=== PATIENT | male | born 1970 | race Hispanic/Latino ===

== ENCOUNTER 2019-05-29 14:12 | Observation (INO) | payer BC ==
[~2019-05-29] VITALS: Ht 177.8 cm; Wt 127.0 kg
--- NOTE | 2019-05-29 16:06 | NUR ---
blood sent to lab.
[2019-05-29 16:09] LABS: BASOPHILS # (AUTO) 0.1 (0.0-0.1); BASOPHILS % 0.9 % (0.0-1.0); EOSINOPHILS # (AUTO) 0.2 (0.0-0.4); EOSINOPHILS % 2.7 % (0.0-6.0); HEMOGLOBIN 13.8 g/dL (14.0-18.0); LYMPHOCYTES # (AUTO) 2.1 (1.0-3.2); LYMPHOCYTES % 36.5 % (18.0-39.1); MEAN CORPUSCULAR HEMOGLOBIN 31.9 pg (28-32); MEAN CORPUSCULAR HGB CONC 35.4 g/dL (31-35); MEAN CORPUSCULAR VOLUME 90.1 fL (81-99); MONOCYTES # (AUTO) 0.4 (0.2-0.8); MONOCYTES % 6.6 % (4.4-11.3); NEUTROPHILS # (AUTO) 3.1 (2.1-6.9); PLATELET COUNT 190 x10e3/uL (140-360); RED BLOOD COUNT 4.33 x10e6/uL (4.3-5.7); RED CELL DISTRIBUTION WIDTH 13.4 % (11.7-14.4)
[2019-05-29 16:19] LABS: INR 0.82; PROTHROMBIN TIME 11.8 seconds (11.9-14.5)
[2019-05-29 16:20] LABS: PARTIAL THROMBOPLASTIN TIME 28.8 seconds (23.8-35.5)
[2019-05-29 16:28] LABS: ALBUMIN/GLOBULIN RATIO 1.1 (0.8-2.0); ANION GAP 20.6 mmol/L (8-16); CALCIUM 9.2 mg/dL (8.4-10.2); CREATININE, SERUM 1.44 mg/dL (0.72-1.25); POTASSIUM 3.6 mmol/L (3.5-5.1)
[2019-05-29 16:34] LABS: CREATINE KINASE MB 15.7 ng/mL (0-5.0)
[2019-05-29] MEDS ORDERED: SODIUM CHLORIDE 0.9% 1000ML 1,000 ML IV STA (16:57)
[2019-05-29 17:32] LABS: CHOL/HDL RATIO 8.7 (3.9-4.7); CHOLESTEROL 372 MD/DL (0-199); HDL CHOLESTEROL 43 MG/DL (40-60); TRIGLYCERIDES 1145 MG/DL (0-149)
[2019-05-29] MEDS ORDERED: DEXTROSE 50% SYRINGE 50 ML IV PRN (18:15)
[2019-05-29] MEDS: SODIUM CHLORIDE 0.9% 1000ML 1,000 ML IV SCH (18:53)
[2019-05-29] MEDS ORDERED: ONDANSETRON HCL INJ 2MG/ML 2ML 2 MG/ML VIAL IV STA (19:20)
[2019-05-29] MEDS ORDERED: MORPHINE SULFATE INJ 4 MG/ML INJ 1ML IV STA (19:20)
[2019-05-29] MEDS ORDERED: GEMFIBROZIL600 MG PO (20:04)
[2019-05-29] MEDS ORDERED: SYNTHROID100 MCG PO (20:04)
[2019-05-29] MEDS ORDERED: AMLODIPINE BESYL5 MG PO (20:04)
--- NOTE | 2019-05-29 20:37 | NUR ---
dr alexander spoken to regarding hypertension, orders recieved, telephone orders read back in full
[2019-05-29] MEDS ORDERED: HYDRALAZINE HCL 20 MG/ML VIAL IV PRN (20:45)
[2019-05-29] MEDS: AMLODIPINE BESYLATE 5 MG TAB PO SCH (20:57)
--- NOTE | 2019-05-29 20:58 | NUR ---
almodipine to be started first dose now per dr goodman
[2019-05-29] MEDS ORDERED: HYDRALAZINE HCL 20 MG/ML VIAL ONE (21:01)
[2019-05-29] MEDS: INSULIN LISPRO 100 UNIT/1 ML 3ML VIAL SQ SCH (22:44)
[2019-05-29 23:28] VITALS: BP 139/81
[2019-05-29 23:48] VITALS: BP 141/98
[2019-05-29 23:54] VITALS: BP 141/98
[2019-05-30] MEDS: MORPHINE SULFATE INJ 4 MG/ML INJ 1ML IV PRN ×3 (00:25→09:13)
[2019-05-30] MEDS: ONDANSETRON HCL INJ 2MG/ML 2ML 2 MG/ML VIAL IV PRN ×2 (00:25→09:13)
[2019-05-30] MEDS ORDERED: HYDRALAZINE HCL 20 MG/ML VIAL IV PRN (00:45)
[2019-05-30] MEDS: SODIUM CHLORIDE 0.9% 1000ML 1,000 ML IV SCH ×4 (01:10→23:05)
[2019-05-30 01:35] LABS: CREATINE KINASE 469 IU/L (30-200)
[2019-05-30 04:32] VITALS: BP 142/89
[2019-05-30] MEDS ORDERED: LEVOTHYROXINE SODIUM 100 MCG TAB PO SCH (06:00)
[2019-05-30 06:53] LABS: BASOPHILS % 0.9 % (0.0-1.0); EOSINOPHILS # (AUTO) 0.1 (0.0-0.4); EOSINOPHILS % 3.2 % (0.0-6.0); HEMATOCRIT 39.7 % (38.2-49.6); HEMOGLOBIN 12.8 g/dL (14.0-18.0); LYMPHOCYTES # (AUTO) 1.6 (1.0-3.2); LYMPHOCYTES % 38.1 % (18.0-39.1); MEAN CORPUSCULAR HEMOGLOBIN 31.1 pg (28-32); MEAN CORPUSCULAR HGB CONC 32.2 g/dL (31-35); MEAN CORPUSCULAR VOLUME 96.4 fL (81-99); MONOCYTES # (AUTO) 0.3 (0.2-0.8); MONOCYTES % 7.7 % (4.4-11.3); NEUTROPHILS # (AUTO) 2.2 (2.1-6.9); NEUTROPHILS % 49.9 % (38.7-80.0); PLATELET COUNT 143 x10e3/uL (140-360); RED BLOOD COUNT 4.12 x10e6/uL (4.3-5.7); RED CELL DISTRIBUTION WIDTH 13.2 % (11.7-14.4)
[2019-05-30 07:15] LABS: CHOL/HDL RATIO 8.9 (3.9-4.7)
--- NOTE | 2019-05-30 07:20 | NUR ---
PATIENT IS ALERT AND IN STABLE CONDITION WITH NO S/S OF RESPIRATORY DISTRESS. PATIENT C/O RIGHT ANTERIOR FOOT PAIN 10/29. TELEMETRY APPLIED. CALL LIGHT IS WITHIN REACH- PATIENT INSTRUCTED TO CALL FOR ASSISTANCE NEEDED
[2019-05-30 07:29] VITALS: BP 133/85
[2019-05-30 07:38] LABS: THYROID STIMULATING HORMONE 54.336 uIU/mL (0.350-4.940)
[2019-05-30 07:41] VITALS: BP 133/85
[2019-05-30 08:22] LABS: ALANINE AMINOTRANSFERASE 32 IU/L (0-55); ALBUMIN 3.6 g/dL (3.5-5.0); ALBUMIN/GLOBULIN RATIO 1.1 (0.8-2.0); ALKALINE PHOSPHATASE 77 IU/L (40-150); ANION GAP 18.3 mmol/L (8-16); BLOOD UREA NITROGEN 12 mg/dL (7-26); BUN/CREATININE RATIO 11 (6-25); CALCIUM 8.2 mg/dL (8.4-10.2); CARBON DIOXIDE 21 mmol/L (22-29); CHLORIDE 97 mmol/L (98-107); CREATININE, SERUM 1.14 mg/dL (0.72-1.25); EST GLOMERULAR FILTRATION RATE > 60 ML/MIN (60-); GLUCOSE 242 mg/dL (74-118); POTASSIUM 3.3 mmol/L (3.5-5.1); SODIUM 133 mmol/L (136-145)
[2019-05-30] MEDS: GEMFIBROZIL 600 MG TAB PO SCH ×2 (09:04→16:25)
[2019-05-30] MEDS: INSULIN LISPRO 100 UNIT/1 ML 3ML VIAL SQ SCH ×5 (09:05→20:49)
[2019-05-30] MEDS: AMLODIPINE BESYLATE 5 MG TAB PO SCH (09:06)
[2019-05-30 09:40] LABS: CREATINE KINASE 1002 IU/L (30-200)
[2019-05-30 11:16] VITALS: BP 128/76
[2019-05-30 14:27] LABS: CREATINE KINASE 928 IU/L (30-200)
[2019-05-30 15:05] VITALS: BP 135/75
[2019-05-30] MEDS ORDERED: ACETAMINOPHEN 325 MG TAB PO PRN (16:30)
--- NOTE | 2019-05-30 19:07 | NUR ---
PATIENT IN STABLE CONDITION WITH NO S/S OF RESPIRATORY DISTRESS- NO PAIN VOICED. TELEMETRY APPLIED. CALL LIGHT IS WITHIN REACH, PATIENT INSTRUCTED TO CALL FOR ASSISTANCE NEEDED. BEDSIDE SHIFT REPORT GIVEN TO ONCOMING NURSE.
--- NOTE | 2019-05-30 19:23 | NUR ---
RECEIVED REPORT FROM 7AM NURSE, ROUNDS DONE, WILL CONTINUE TO MONITOR.
[2019-05-30 20:00] VITALS: BP 135/69
[2019-05-30] MEDS: INSULIN GLARGINE 100 UNITS/ML VIAL SQ SCH (20:50)
--- NOTE | 2019-05-30 23:31 | Consultation ---
DATE OF CONSULTATION: 05/30/2019 Endocrine Consultation Thank you very much for referring this patient. HISTORY OF PRESENT ILLNESS: This is a 48-year-old gentleman, who was referred to me for evaluation of severe hypothyroidism, diabetes mellitus, and hyperlipidemia. The patient reportedly is a known diabetic for last several years and takes Levemir insulin 20 units twice daily. He also has history of hypothyroidism, for which he is on Synthroid 0.2 mg once daily, along with hyperlipidemia and diabetes mellitus type 2. The patient came to the hospital with history of severe pain in both legs. He was found to have rhabdomyolysis and his CK levels were significantly elevated. The further lab evaluation shows his TSH is around 15.54, which is significantly elevated. The blood sugar is also elevated and the triglyceride was 1145. The patient is getting IV fluids presently. His blood sugars are in the ranges of 50-300. No history of major coronary artery disease in the past. PHYSICAL EXAMINATION: GENERAL: Today, the patient is alert, awake. He is moderately overweight. He looks myxedematous. VITAL SIGNS: His heart rate is around 60, blood pressure 140/80 mmHg. HEENT: Essentially unremarkable. Thyroid is palpable. Clinically, he looks hypothyroid. CHEST: Bilateral vesicular breathing. He has mild bronchospasm. CARDIOVASCULAR: First and second heart sounds. There are no 3rd or 4th heart sounds. Ejection systolic murmur is grade 2/6. EXTREMITIES: The patient has evidence of diabetes and sensorimotor neuropathy in both lower extremities. LABORATORY DATA: His triglyceride level is 1145. His cholesterol was 372, and his blood sugar was 342 at the time of admission with anion gap of 20.6. IMPRESSION: Hypothyroidism, acute rhabdomyolysis, diabetes mellitus type 2 with complications, hyperlipidemia, hypertension. PLAN: At this time is to put him on Lantus and Humalog combination, increase his thyroid dose and change from Lopid to Tricor 145 mg once daily IV fluids. Thank you for referring this patient. I will follow this patient with you. MD NAVDEEP Barnes/ROLDANL /[id number]
[2019-05-31] VITALS (9 sets, daily range): BP systolic 118–140; BP diastolic 66–97
[2019-05-31] MEDS: SODIUM CHLORIDE 0.9% 1000ML 1,000 ML IV SCH ×3 (04:04→20:57)
[2019-05-31] MEDS: LEVOTHYROXINE SODIUM 100 MCG TAB PO SCH (06:09)
[2019-05-31 06:37] LABS: BASOPHILS % 0.6 % (0.0-1.0); EOSINOPHILS # (AUTO) 0.1 (0.0-0.4); EOSINOPHILS % 2.2 % (0.0-6.0); HEMATOCRIT 39.1 % (38.2-49.6); LYMPHOCYTES # (AUTO) 2.1 (1.0-3.2); LYMPHOCYTES % 40.6 % (18.0-39.1); MEAN CORPUSCULAR HEMOGLOBIN 31.1 pg (28-32); MEAN CORPUSCULAR HGB CONC 33.2 g/dL (31-35); MEAN CORPUSCULAR VOLUME 93.5 fL (81-99); MONOCYTES # (AUTO) 0.3 (0.2-0.8); MONOCYTES % 5.7 % (4.4-11.3); NEUTROPHILS # (AUTO) 2.6 (2.1-6.9); NEUTROPHILS % 50.3 % (38.7-80.0); PLATELET COUNT 164 x10e3/uL (140-360); RED BLOOD COUNT 4.18 x10e6/uL (4.3-5.7); RED CELL DISTRIBUTION WIDTH 13.3 % (11.7-14.4)
[2019-05-31 07:00] LABS: ANION GAP 14.7 mmol/L (8-16); BLOOD UREA NITROGEN 9 mg/dL (7-26); BUN/CREATININE RATIO 8 (6-25); CALCIUM 8.6 mg/dL (8.4-10.2); CARBON DIOXIDE 22 mmol/L (22-29); CHLORIDE 100 mmol/L (98-107); CREATININE, SERUM 1.14 mg/dL (0.72-1.25); EST GLOMERULAR FILTRATION RATE > 60 ML/MIN (60-); GLUCOSE 188 mg/dL (74-118); POTASSIUM 3.7 mmol/L (3.5-5.1); SODIUM 133 mmol/L (136-145)
[2019-05-31] MEDS ORDERED: ACETAMINOPHEN/CODEINE 300MG - 30MG TAB PO PRN (07:00)
--- NOTE | 2019-05-31 07:12 | NUR ---
REPORT GIVEN TO 7AM NURSE, ROUNDS DONE, CALL LIGHT REMAIN IN REACH. WILL CONTINUE TO MONITOR. PATIENT IS SITTING ON THE SOFA WITH HIS .
--- NOTE | 2019-05-31 07:20 | NUR ---
PATIENT IS IN STABLE CONDITION WITH NO S/S OF RESPIRATORY DISTRESS. PATIENT DENIES PAIN. TELEMETRY APPLIED. PRESENT IN THE ROOM. CALL LIGHT IS WITHIN REACH OF PATIENT, PATIENT INSTRUCTED TO CALL FOR ASSISTANCE NEEDED.
[2019-05-31] MEDS: INSULIN LISPRO 100 UNIT/1 ML 3ML VIAL SQ SCH ×7 (07:30→20:22)
[2019-05-31] MEDS: AMLODIPINE BESYLATE 5 MG TAB PO SCH (08:21)
[2019-05-31] MEDS ORDERED: FENOFIBRATE 145 MG TAB PO ONE (09:00)
--- NOTE | 2019-05-31 19:10 | NUR ---
walking rounds complete, pt alert resp even and no c/o pain when asked, at bedside, call light in reach.
--- NOTE | 2019-05-31 19:23 | NUR ---
PATIENT IS RESTING IN BED- IN STABLE CONDITION WITH NO S/S OF RESPIRATORY DISTRESS. NO PAIN VOICED. TELEMETRY APPLIED. PRESENT IN THE ROOM. CALL LIGHT IS WITHIN REACH OF PATIENT- PATIENT INSTRUCTED TO CALL FOR ASSISTANCE NEEDED. BEDSIDE SHIFT REPORT GIVEN TO ONCOMING NURSE.
[2019-05-31] MEDS: INSULIN GLARGINE 100 UNITS/ML VIAL SQ SCH (22:15)
[2019-06-01] VITALS: BP 116/71
--- NOTE | 2019-06-01 02:35 | NUR ---
pt resting comfortably, family member at bedside, no distress noted call light in reach. will cont to monitor.
[2019-06-01 04:00] VITALS: BP 128/77
[2019-06-01] MEDS: LEVOTHYROXINE SODIUM 100 MCG TAB PO SCH (05:23)
[2019-06-01 05:44] LABS: BASOPHILS % 0.8 % (0.0-1.0); EOSINOPHILS # (AUTO) 0.1 (0.0-0.4); EOSINOPHILS % 2.2 % (0.0-6.0); HEMATOCRIT 39.5 % (38.2-49.6); HEMOGLOBIN 12.9 g/dL (14.0-18.0); LYMPHOCYTES % 39.7 % (18.0-39.1); MEAN CORPUSCULAR HEMOGLOBIN 30.9 pg (28-32); MEAN CORPUSCULAR HGB CONC 32.7 g/dL (31-35); MEAN CORPUSCULAR VOLUME 94.5 fL (81-99); MONOCYTES # (AUTO) 0.4 (0.2-0.8); MONOCYTES % 7.4 % (4.4-11.3); NEUTROPHILS # (AUTO) 2.5 (2.1-6.9); NEUTROPHILS % 49.1 % (38.7-80.0); PLATELET COUNT 164 x10e3/uL (140-360); RED BLOOD COUNT 4.18 x10e6/uL (4.3-5.7); RED CELL DISTRIBUTION WIDTH 13.4 % (11.7-14.4)
[2019-06-01 06:14] LABS: ANION GAP 14.8 mmol/L (8-16); BLOOD UREA NITROGEN 12 mg/dL (7-26); BUN/CREATININE RATIO 10 (6-25); CALCIUM 8.9 mg/dL (8.4-10.2); CARBON DIOXIDE 27 mmol/L (22-29); CHLORIDE 99 mmol/L (98-107); CREATINE KINASE 611 IU/L (30-200); CREATININE, SERUM 1.18 mg/dL (0.72-1.25); EST GLOMERULAR FILTRATION RATE > 60 ML/MIN (60-); GLUCOSE 179 mg/dL (74-118); POTASSIUM 3.8 mmol/L (3.5-5.1); SODIUM 137 mmol/L (136-145)
[2019-06-01] MEDS ORDERED: SYNTHROID100 MCG PO (06:25)
[2019-06-01] MEDS ORDERED: TRICOR145 MG PO (06:28)
--- NOTE | 2019-06-01 07:17 | NUR ---
bedside rounding, complete , pt stable at shift change.
[2019-06-01 07:42] VITALS: BP 145/97
[2019-06-01] MEDS: INSULIN LISPRO 100 UNIT/1 ML 3ML VIAL SQ SCH ×4 (07:51→11:54)
[2019-06-01] MEDS ORDERED: ONDANSETRON HCL 4 MG ORAL DISINTEGRATING TAB PO PRN (08:15)
[2019-06-01 08:17] VITALS: BP 145/97
[2019-06-01] MEDS: AMLODIPINE BESYLATE 5 MG TAB PO SCH (08:39)
[2019-06-01] MEDS ORDERED: FENOFIBRATE 145 MG TAB PO SCH (09:00)
--- NOTE | 2019-06-01 11:04 | NUR ---
patient up in recliner, walked with PT, Denies any pain or distress, keep monitoring
[2019-06-01 11:41] VITALS: BP 133/94
--- NOTE | 2019-06-01 13:08 | NUR ---
Discontinuing skilled physical therapy services since patient is independent in functional mobility. Thank you. Addendum: 06/01/19 at 1309 by Angel Luis east PT Amended: Links added.
[2019-06-01] MEDS ORDERED: LANTUS 3ML100 UNITS/ SC (14:20)
[2019-06-01] MEDS ORDERED: HUMALOG100 UNIT/3 SC (14:22)
--- NOTE | 2019-06-01 15:34 | NUR ---
Patient discharged home, Dr Yadav had rounds and written prescription for insulin and patient aware with f/up with him in 2 weeks, IV canulas removed with tip intact, no ss of infiltration noted, denies any pain , no distress noted, at bed side, he refused wheelchair and walked with him.
--- NOTE | 2019-06-02 07:12 | Discharge Summary ---
ADMISSION DIAGNOSES: Hypothyroidism, rhabdomyolysis, type 2 diabetes, hyperlipidemia, hypertension. DISCHARGE DIAGNOSES: Hypothyroidism, rhabdomyolysis, type 2 diabetes, hyperlipidemia, hypertension. HISTORY: Type 2 diabetes, hyperlipidemia, hypertension. SURGICAL HISTORY: Noncontributory. FAMILY HISTORY: Noncontributory. SOCIAL HISTORY: Noncontributory. HOSPITAL COURSE: A 48-year-old male admits for abnormal lab results on arrival. His triglycerides and TSH level were elevated. Endocrinology was consulted. His cholesterol was 372, his triglycerides were 1145, and his CK was 1325 on admission. His TSH was found to be 54. His A1c was 10.7. Per Endocrinology recommendation, the patient will discharge with increased dose of levothyroxine, Tricor, Lantus 32 units at bedtime, and Humalog 12 units t.i.d. with meals. The patient and understand discharge instructions and agreed to plan. Vital signs stable, patient afebrile. Dictated by Meme Banuelos NP MD VIDAL Banks/MODL /[id number]
== END 2019-06-01 15:31 | disposition home or self-care (01) ==
LOC: ER 14:12 → ERHOLD 18:05 → MED/SURG3 21:55
PROVIDERS: ADMIT Internal Medicine; ATTEND Internal Medicine
DX: M62.82 Rhabdomyolysis (principal); I10 Essential (primary) hypertension; E78.5 Hyperlipidemia, unspecified; E03.9 Hypothyroidism, unspecified; Z79.4 Long term (current) use of insulin; E11.42 Type 2 diabetes mellitus with diabetic polyneuropathy
CPT/HCPCS: 36415 ×4; 80048 ×2; 80053 ×2; 80061 ×2; 82150; 82550 ×4; 82553 ×2; 82948 ×4; 83036; 83690; 83735; 84436; 84443; 84484 ×2; 85025 ×4; 85610; 85730; 93005; 97161; 99284; G0378 ×4; J1815; J2270 ×2; J2405 ×2; J7030 ×3; J0360

== ENCOUNTER 2019-09-15 10:00 | Emergency (ER) | payer BC, OTHER ==
[~2019-09-15] VITALS: Ht 177.8 cm; Wt 127.0 kg
[~2019-09-15 10:00] MED LIST: AMLODIPINE BESYL5 MG PO; GEMFIBROZIL600 MG PO; HUMALOG100 UNIT/3 SC; LANTUS 3ML100 UNITS/ SC; SYNTHROID100 MCG PO; TRICOR145 MG PO
--- OUTSIDE RECORDS SUMMARY | 2019-09-15 10:03 | XMS REPORT | Clinical Summary ---
Author Author [facility] Organization [facility] Address Unknown Phone Unavailable Care Team Providers Care Board Catcher Name Role Phone Asked, No Pcp PCP Unavailable Allergies Comments Active Allergy Reactions Severity Noted Date Platelet transfusion caused a rash Other Rash Low 02/24/2016 Increase alk phos Posaconazole 05/29/2017 Medications End Date Status Medication Sig Dispensed Refills Start Date Active multivitamin (THERAGRAN) Take 1 tablet 0 tablet by mouth daily. Active insulin DETEMIR (LEVEMIR) Inject 20 10 pen 1 100 unit/mL (3 mL) Units under 8 insulin penIndications: the skin 2 Insulin dependent (two) times a diabetes mellitus (HCC) day. Additional Information Patient taking differently: 32 Units subcutaneous 2 times daily, Reported on 07/02/2019 3:13 PM Active SURE-FINE PEN NEEDLES 29 [place] for 60 each 6 0 gauge x 1/2" insulin 9 needleIndications: injections Diabetes mellitus due to underlying condition with hyperglycemia, unspecified whether care home insulin use (HCC) 06/17/2020 Active amLODIPine (NORVASC) 10 Take 1 tablet 30 tablet 11 mg tablet (10 mg total) 0 by mouth daily. Active insulin lispro (HumaLOG) 3 (three) 0 100 unit/mL injection times a day as needed. Per sliding scale provided by endocrinology Active fenofibrate (TRICOR) 145 Take 1 tablet 90 tablet 3 MG tablet (145 mg 0 total) by mouth daily. Active levothyroxine (SYNTHROID) Take 1 tablet 90 tablet 2 125 mcg tablet (125 mcg 0 total) by mouth daily. 09/03/2019 Discontinued (Therapy comple renetta) rosuvastatin (CRESTOR) 20 TAKE 1 TABLET 30 tablet 0 MG tablet BY MOUTH 0 DAILY 07/02/2019 Discontinued (Alternate ther apy) LANTUS 100 unit/mL INJECT 20 10 mL 4 01 injection (vial) UNITS IN THE 8 MORNING AND 20 UNITS AT NIGHT 12/05/2018 Discontinued (Reorder) amLODIPine (NORVASC) 5 mg TAKE 1 TABLET 90 tablet 2 tablet DAILY 8 12/05/2018 Discontinued (Reorder) SURE-FINE PEN NEEDLES 29 [place] for 60 each 6 0 gauge x 1/2" insulin 9 needleIndications: injections Diabetes mellitus due to underlying condition with hyperglycemia, unspecified whether exterminator helper insulin use (HCC) 06/18/2019 Discontinued levothyroxine (SYNTHROID, Take 100 mcg 0 LEVOXYL) 100 mcg tablet by mouth 2 (two) times a day. 07/02/2019 Discontinued (Therapy comple renetta) gemfibrozil (LOPID) 600 Take 1 tablet 0 MG tablet by mouth 2 9 (two) times a day. 06/18/2019 Discontinued amLODIPine (NORVASC) 5 mg TAKE 2 TABLET 120 tablet 2 tablet DAILY 9 09/03/2019 Discontinued (Reorder) fenofibrate (TRICOR) 145 Take 1 tablet 0 06/01 MG tablet by mouth 0 daily. 07/02/2019 Discontinued (Alternate ther apy) SYNTHROID 200 mcg tablet Take 200 mcg 0 04/01 by mouth 9 every morning. 09/03/2019 Discontinued (Reorder) levothyroxine (SYNTHROID) Take 125 mcg 0 125 mcg tablet by mouth daily. Active Problems Problem Noted Date Uncontrolled type 2 diabetes mellitus 02/18/2018 Pure hypercholesterolemia 12/03/2017 Other sleep apnea 10/03/2017 Hypothyroid 10/03/2017 Need for vaccination 10/03/2017 Other specified hypothyroidism 09/19/2017 Overview: 1. 09/19/17 TSH 103.7, T4 <0.1. Commen panchito synthroid. Acquired hypothyroidism 08/29/2017 Iron overload 07/03/2017 Fungal infection of skin 01/17/2017 Skin nodule 01/10/2017 Overview: 1. 01/08/17 bx of left foot nodule. Vfe nd commenced. Cytomegalovirus (CMV) viremia 10/18/2016 Overview: 1. 10/15/16 CMV 5-10. 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 Bone marrow tx 09/20/16 2.75 x 10 (8) TNC/kg Engrafted 10/06. Mild nausea no Gvhd. Donor CMV + ABO 1. 7 PB STR 100% donor. 2. 8 PB STR 100% donor. 3. 12/31/16 BM 50% cellular, Flow negat vandana. Cytogenetics 46 XY STR 100% donor. 4. 03/20/17 PB STR 88% mononuclear 96% granulocytes donor. 5. 06/13/17 PB STR 71% mononuclear 100% granulocytes donor. 6. 09/19/17 BM 40-50% cellular, no MDS. Flow negative. Cytogenetics 46 XY STR 93% mononuclear 96% granulocytes 02/04/19 PB STR 64% mononuclear 97% gr anulocyte donor. 06/18/19 BM 40-60% cellular with normal maturation. Flow negative. Cytogenetics 46 XY FISH MDS normal ST R 87% mononuclear 97% granulocytes donor. 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 07/19/16 Toxo IgG+ Hepatic steatosis 07/19/2016 Overview: 1. 01/2016, Ultrasound [facility] Aplastic anemia 04/12/2016 Overview: 1. Dx 05/04/2014 BM 5-10 % cellularity, Cytogenetics 46 XY PB flow PNH negative. 2. ATG (equine) CSA improved, but disco ntinued CSA due to lack of insurance. Off 06/2015. 3. Relapsed 01/12/16 BM 10% 4. ATG (rabbit) CSA/ steroids and Proma cta. Increased to 150mg 03/2016. 5. 07/19/16 BM 10-50% cytogenetics 46 XY 07/27/16 PB PNH flow negative Type 2 diabetes mellitus without complication, with l rina-term current use 04/22/2015 of insulin Overview: 1. 2015 Essential hypertension 04/22/2013 Overview: . 2013 Other hyperlipidemia 04/22/2013 Overview: . 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, unspecified bone marrow failure type (HCC) 07/02/2019 Hospital Hematology and Onco logy Encounter 07/02/2019 Miladis Clark, [place] MD Vu, Shilpa K., SPOUT POSITIONER Pure hypercholesterolemia (Primary Dx); Hypothyroidism, unspecified type; Need for vaccination; Acquired hypothyroidism; Iron overload; 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, unspecified bone marrow failure type (HCC); Hx of allogeneic bone marrow transplant (HCC); Aplastic anemia (HCC) 06/18/2019 [facility] Hematology and Onco logy Encounter Vu, Shilpa K., SPOUT POSITIONER 06/09/2019 Orders Only Hematology and Onco logy Tutu, Shilpa K., SPOUT POSITIONER 05/19/2019 Orders Only Hematology and Onco logy Devon Ndiaye MD Vu, Shilpa K., SPOUT POSITIONER No Show 04/24/2019 [facility] Hematology and Onco logy Encounter Katalina Cruz MD Carrum, George, MD Vu, Shilpa K., SPOUT POSITIONER Aplastic anemia (HCC) (Primary Dx); Essential hypertension; Other hyperlipidemia; Type 2 diabetes mellitus without complication, with long-term current use of insulin (HCC); Immunocompromised (HCC); Hx of allogeneic bone marrow transplant (HCC) 04/08/2019 [facility] Hematology and Onco logy Encounter Katalina Cruz MD Carrum, George, MD Vu, Shilpa K., SPOUT POSITIONER Pure hypercholesterolemia (Primary Dx); Hypothyroidism, unspecified type; Need for vaccination; Acquired hypothyroidism; Iron overload; 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, unspecified bone marrow failure type (HCC) 03/11/2019 [facility] Hematology and Onco logy Encounter Tutu Shilpa K., SPOUT POSITIONER 03/11/2019 Orders Only Hematology and Onco logy Katalina Cruz MD Carrum, George, MD Vu, Shilpa K., SPOUT POSITIONER Aplastic anemia (HCC) (Primary Dx); 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, unspecified bone marrow failure type (HCC); Hx of allogeneic bone marrow transplant (HCC); Pure hypercholesterolemia; Hypothyroidism, unspecified type; Need for vaccination; Acquired hypothyroidism; Iron overload; Essential hypertension 02/04/2019 Hospital Hematology and Onco logy Encounter Katalina Cruz MD Carrum, MD Tutu Osorio, Shilpa K., SPOUT POSITIONER Pure hypercholesterolemia (Primary Dx); Hypothyroidism, unspecified type; Need for vaccination; Acquired hypothyroidism; Iron overload; 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, unspecified bone marrow failure type (HCC) 01/08/2019 Hospital Hematology and Onco logy Encounter Katalina Cruz MD Carrum, MD Tutu Osorio, Shilpa K., SPOUT POSITIONER Aplastic anemia (HCC) (Primary Dx); Pure hypercholesterolemia; Hypothyroidism, unspecified type; Need for vaccination; Acquired hypothyroidism; Iron overload; Immunocompromised (HCC); Type 2 diabetes mellitus without complication, with long-term current use of insulin (HCC); Hx of allogeneic bone marrow transplant (HCC); Diabetes mellitus due to underlying condition with hyperglycemia, unspecified whether care home insulin use (HCC) 12/05/2018 Hospital Hematology and Onco logy Encounter Katalina Cruz MD Carrum, MD Tutu Osorio, Shilpa K., SPOUT POSITIONER 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, 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) (Primary Dx); Pure hypercholesterolemia; Hypothyroidism, unspecified type; Need for vaccination; Acquired hypothyroidism; Iron overload; Immunocompromised (HCC) 11/05/2018 Hospital Hematology and Onco logy Encounter Katalina Cruz MD Carrum, MD Tutu Osorio, Shilpa K., SPOUT POSITIONER 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, 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) (Primary Dx); Pure hypercholesterolemia; Hypothyroidism, unspecified type; Need for vaccination; Acquired hypothyroidism; Iron overload 10/03/2018 Hospital Hematology and Onco logy Encounter after 09/14/2018 Immunizations Name Administration Dates Next Due FLUCELVAX QUAD PF 02/04/2019, 01/29/2018, Hepatitis A 07/18/2018, 12/31/2017 Hepatitis B 04/30/2018, 11/05/2017, Hib (PRP-T) 08/15/2018, 12/31/2017, IPV 04/30/2018, 01/29/2018, MMR 11/05/2018, 10/03/2018 Meningococcal MCV4P 12/31/2017 Pneumococcal Conjugate 07/18/2018, 12/03/2017 13-Valent Pneumococcal 08/15/2018 Polysaccharide Tdap 01/29/2018, 12/03/2017, Zoster Vaccine 02/04/2019, 12/05/2018 Recombinant Family History Medical History Relation Name Comments Heart attack Father 65 Diabetes type I Sister 45 Relation Name Status Comments Brother 28 Alive Brother 35 Alive Brother 37 Alive Brother 40 Alive Father 65 Sister 45 Alive Social History Date Tobacco Use Types Packs/Day Years Used Never Smoker Smokeless Tobacco: Never Used Drinks/Week oz/Week Comments Alcohol Use 3 Cans of beer 3.0 none recently Yes Sex Assigned at Date Recorded Not on file Industry Job Start Date Occupation Not on file Not on file Not on file Travel End Travel History Travel Start No recent travel history available. Date Recorded COVID-19 Exposure Response 09/03/2019 11:12 AM CDT In the last month, have you been in contact with No / Unsure someone who was confirmed or suspected to have Coronavirus / COVID-19? Last Filed Vital Signs Reading Time Taken Comments Vital Sign 151/90 09/03/2019 12:16 PM CDT Blood Pressure 90 09/03/2019 12:16 PM CDT Pulse 36.5 C (97.7 F) 09/03/2019 11:25 AM CDT Temperature 20 09/03/2019 11:25 AM CDT Respiratory Rate 94% 09/03/2019 12:16 PM CDT Oxygen Saturation - - Inhaled Oxygen Concentration 115 kg (253 lb 4.9 oz) 09/03/2019 11:25 AM CDT Weight 177.8 cm (5' 10") 09/03/2019 11:25 AM CDT Height 36.35 09/03/2019 11:25 AM CDT Body Mass Index Plan of Treatment Care Team Description Date Type Specialty Miladis Sanchez NP [id number] [place] [address] Devon Ndiaye MD [id number] [place] [address] 11/05/2019 Appointment Hematology and Onco logy Health Maintenance Due Date Last Done Comments DIABETIC RETINAL EYE EXAM 1969 DIABETIC FOOT EXAM 07/23/1979 COLONOSCOPY SCREENING 07/23/2019 SHINGLES VACCINES (#1) 07/23/2019 02/04/2019, 12/05/2018 INFLUENZA VACCINE 11/21/2019 02/04/2019, 01/30/2018, 01/29/2018, Additional history exists Procedures Comments Procedure Name Priority Date/Time Associated Diag nosis ESTIMATED GFR STAT 09/03/2019 11:30 AM CDT T4, FREE STAT 09/03/2019 Hypothyroidism, 11:30 AM CDT unspecified type THYROID STIMULATING STAT 09/03/2019 Hypothyroi dism, HORMONE 11:30 AM CDT unspecified type FERRITIN LEVEL STAT 09/03/2019 Iron overload 11:30 AM CDT LDH STAT 09/03/2019 Anemia due to b one marrow 11:30 AM CDT failure, unspecified bone marrow failure type (HCC) MAGNESIUM LEVEL STAT 09/03/2019 Anemia due to bone marrow 11:30 AM CDT failure, unspecified bone marrow failure type (HCC) COMPREHENSIVE METABOLIC STAT 09/03/2019 Anemia due to bone marrow PANEL 11:30 AM CDT failure, unspecifie d bone marrow failure type (HCC) HC COMPLETE BLD COUNT STAT 09/03/2019 Iron ove rload W/AUTO DIFF 11:01 AM CDT 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, unspecified bone marrow failure type (HCC) ESTIMATED GFR STAT 07/02/2019 8:55 AM CDT LDH STAT 07/02/2019 Pure hyperchole sterolemia 8:55 AM CDT Hypothyroidism, unspecified type Need for vaccination Acquired hypothyroidism Iron overload 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, unspecified bone marrow failure type (HCC) MAGNESIUM LEVEL STAT 07/02/2019 Pure hyperchol esterolemia 8:55 AM CDT Hypothyroidism, unspecified type Need for vaccination Acquired hypothyroidism Iron overload 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, unspecified bone marrow failure type (HCC) COMPREHENSIVE METABOLIC STAT 07/02/2019 Pure h ypercholesterolemia PANEL 8:55 AM CDT Hypothyroidism, unspecified type Need for vaccination Acquired hypothyroidism Iron overload 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, unspecified bone marrow failure type (HCC) HC COMPLETE BLD COUNT STAT 07/02/2019 Pure hyp ercholesterolemia W/AUTO DIFF 8:55 AM CDT Hypothyroidism, unspecified type Need for vaccination Acquired hypothyroidism Iron overload 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, unspecified bone marrow failure type (HCC) T4, FREE STAT 07/02/2019 Hypothyroidism, 8:55 AM CDT unspecified type THYROID STIMULATING STAT 07/02/2019 Hypothyroi dism, HORMONE 8:55 AM CDT unspecified type FERRITIN LEVEL STAT 07/02/2019 Iron overload 8:55 AM CDT SURGICAL PATHOLOGY Routine 06/18/2019 REQUEST 1:38 PM TOP FLAVOR ATTENDANT BONE MARROW TRAY Routine 06/18/2019 1:01 PM TOP FLAVOR ATTENDANT SHORT TANDEM REPEATS Routine 06/18/2019 (CHMERISM TESTING) 1:00 PM TOP FLAVOR ATTENDANT BONE MARROW TRAY Routine 06/18/2019 1:00 PM TOP FLAVOR ATTENDANT FLOW CYTOMETRY EVALUATION Routine 06/18/2019 1:00 PM TOP FLAVOR ATTENDANT MISCELLANEOUS REFERRAL Routine 06/18/2019 TEST 12:00 PM TOP FLAVOR ATTENDANT 54 GENE MYELOID MUTATION Routine 06/18/2019 TEST 12:00 PM TOP FLAVOR ATTENDANT HC COMPLETE BLD COUNT STAT 06/18/2019 Pure hyp ercholesterolemia W/AUTO DIFF 11:23 AM TOP FLAVOR ATTENDANT Hypothyroidism, unspecified type Need for vaccination Acquired hypothyroidism Iron overload 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, unspecified bone marrow failure type (HCC) ESTIMATED GFR STAT 06/18/2019 9:01 AM TOP FLAVOR ATTENDANT T4, FREE STAT 06/18/2019 Hypothyroidism, 9:01 AM TOP FLAVOR ATTENDANT unspecified type THYROID STIMULATING STAT 06/18/2019 Hypothyroi dism, HORMONE 9:01 AM TOP FLAVOR ATTENDANT unspecified type FERRITIN LEVEL STAT 06/18/2019 Iron overload 9:01 AM TOP FLAVOR ATTENDANT LDH STAT 06/18/2019 Pure hyperchole sterolemia 9:01 AM TOP FLAVOR ATTENDANT Hypothyroidism, unspecified type Need for vaccination Acquired hypothyroidism Iron overload 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, unspecified bone marrow failure type (HCC) MAGNESIUM LEVEL STAT 06/18/2019 Pure hyperchol esterolemia 9:01 AM TOP FLAVOR ATTENDANT Hypothyroidism, unspecified type Need for vaccination Acquired hypothyroidism Iron overload 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, unspecified bone marrow failure type (HCC) COMPREHENSIVE METABOLIC STAT 06/18/2019 Pure h ypercholesterolemia PANEL 9:01 AM TOP FLAVOR ATTENDANT Hypothyroidism, unspecified type Need for vaccination Acquired hypothyroidism Iron overload 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, unspecified bone marrow failure type (HCC) HC COMPLETE BLD COUNT STAT 03/11/2019 Pure hyp ercholesterolemia W/AUTO DIFF 2:00 PM TOP FLAVOR ATTENDANT Hypothyroidism, unspecified type Need for vaccination Acquired hypothyroidism Iron overload 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, unspecified bone marrow failure type (HCC) ESTIMATED GFR STAT 03/11/2019 1:32 PM TOP FLAVOR ATTENDANT T4, FREE STAT 03/11/2019 Hypothyroidism, 1:32 PM TOP FLAVOR ATTENDANT unspecified type THYROID STIMULATING STAT 03/11/2019 Hypothyroi dism, HORMONE 1:32 PM TOP FLAVOR ATTENDANT unspecified type FERRITIN LEVEL STAT 03/11/2019 Iron overload 1:32 PM TOP FLAVOR ATTENDANT LDH STAT 03/11/2019 Pure hyperchole sterolemia 1:32 PM TOP FLAVOR ATTENDANT Hypothyroidism, unspecified type Need for vaccination Acquired hypothyroidism Iron overload 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, unspecified bone marrow failure type (HCC) MAGNESIUM LEVEL STAT 03/11/2019 Pure hyperchol esterolemia 1:32 PM TOP FLAVOR ATTENDANT Hypothyroidism, unspecified type Need for vaccination Acquired hypothyroidism Iron overload 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, unspecified bone marrow failure type (HCC) COMPREHENSIVE METABOLIC STAT 03/11/2019 Pure h ypercholesterolemia PANEL 1:32 PM TOP FLAVOR ATTENDANT Hypothyroidism, unspecified type Need for vaccination Acquired hypothyroidism Iron overload 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, unspecified bone marrow failure type (HCC) SHORT TANDEM REPEATS Routine 02/04/2019 (CHMERISM TESTING) 5:06 PM CDT ESTIMATED GFR STAT 02/04/2019 2:16 PM CDT LDH STAT 02/04/2019 Pure hyperchole sterolemia 2:16 PM CDT Hypothyroidism, unspecified type Need for vaccination Acquired hypothyroidism Iron overload 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, unspecified bone marrow failure type (HCC) COMPREHENSIVE METABOLIC STAT 02/04/2019 Pure h ypercholesterolemia PANEL 2:16 PM CDT Hypothyroidism, unspecified type Need for vaccination Acquired hypothyroidism Iron overload 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, unspecified bone marrow failure type (HCC) ESTIMATED GFR STAT 02/04/2019 12:55 PM CDT FERRITIN LEVEL STAT 02/04/2019 Iron overload 12:55 PM CDT LDH STAT 02/04/2019 Pure hyperchole sterolemia 12:55 PM CDT Hypothyroidism, unspecified type Need for vaccination Acquired hypothyroidism Iron overload 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, unspecified bone marrow failure type (HCC) MAGNESIUM LEVEL STAT 02/04/2019 Pure hyperchol esterolemia 12:55 PM CDT Hypothyroidism, unspecified type Need for vaccination Acquired hypothyroidism Iron overload 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, unspecified bone marrow failure type (HCC) COMPREHENSIVE METABOLIC STAT 02/04/2019 Pure h ypercholesterolemia PANEL 12:55 PM CDT Hypothyroidism, unspecified type Need for vaccination Acquired hypothyroidism Iron overload 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, unspecified bone marrow failure type (HCC) HC COMPLETE BLD COUNT STAT 02/04/2019 Pure hyp ercholesterolemia W/AUTO DIFF 12:55 PM CDT Hypothyroidism, unspecified type Need for vaccination Acquired hypothyroidism Iron overload 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, unspecified bone marrow failure type (HCC) ESTIMATED GFR STAT 01/08/2019 1:23 PM CDT FERRITIN LEVEL STAT 01/08/2019 Iron overload 1:23 PM CDT THYROID STIMULATING STAT 01/08/2019 Acquired h ypothyroidism HORMONE 1:23 PM CDT LDH STAT 01/08/2019 Pure hyperchole sterolemia 1:23 PM CDT Hypothyroidism, unspecified type Need for vaccination Acquired hypothyroidism Iron overload 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, unspecified bone marrow failure type (HCC) MAGNESIUM LEVEL STAT 01/08/2019 Pure hyperchol esterolemia 1:23 PM CDT Hypothyroidism, unspecified type Need for vaccination Acquired hypothyroidism Iron overload 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, unspecified bone marrow failure type (HCC) COMPREHENSIVE METABOLIC STAT 01/08/2019 Pure h ypercholesterolemia PANEL 1:23 PM CDT Hypothyroidism, unspecified type Need for vaccination Acquired hypothyroidism Iron overload 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, unspecified bone marrow failure type (HCC) HC COMPLETE BLD COUNT STAT 01/08/2019 Pure hyp ercholesterolemia W/AUTO DIFF 1:23 PM CDT Hypothyroidism, unspecified type Need for vaccination Acquired hypothyroidism Iron overload 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, unspecified bone marrow failure type (HCC) ESTIMATED GFR STAT 12/05/2018 1:19 PM CDT FERRITIN LEVEL STAT 12/05/2018 Iron overload 1:19 PM CDT THYROID STIMULATING STAT 12/05/2018 Acquired h ypothyroidism HORMONE 1:19 PM CDT LDH STAT 12/05/2018 Pure hyperchole sterolemia 1:19 PM CDT Hypothyroidism, unspecified type Need for vaccination Acquired hypothyroidism Iron overload MAGNESIUM LEVEL STAT 12/05/2018 Pure hyperchol esterolemia 1:19 PM CDT Hypothyroidism, unspecified type Need for vaccination Acquired hypothyroidism Iron overload COMPREHENSIVE METABOLIC STAT 12/05/2018 Pure h ypercholesterolemia PANEL 1:19 PM CDT Hypothyroidism, unspecified type Need for vaccination Acquired hypothyroidism Iron overload HC COMPLETE BLD COUNT STAT 12/05/2018 Pure hyp ercholesterolemia W/AUTO DIFF 1:19 PM CDT Hypothyroidism, unspecified type Need for vaccination Acquired hypothyroidism Iron overload FERRITIN LEVEL STAT 11/05/2018 1:03 PM CDT ESTIMATED GFR STAT 11/05/2018 1:03 PM CDT THYROID STIMULATING STAT 11/05/2018 Acquired h ypothyroidism HORMONE 1:03 PM CDT CYTOMEGALOVIRUS ANTIGEN STAT 11/05/2018 Pure h ypercholesterolemia 1:03 PM CDT Hypothyroidism, unspecified type Need for vaccination Acquired hypothyroidism Iron overload 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, unspecified bone marrow failure type (HCC) LDH STAT 11/05/2018 Pure hyperchole sterolemia 1:03 PM CDT Hypothyroidism, unspecified type Need for vaccination Acquired hypothyroidism Iron overload 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, unspecified bone marrow failure type (HCC) MAGNESIUM LEVEL STAT 11/05/2018 Pure hyperchol esterolemia 1:03 PM CDT Hypothyroidism, unspecified type Need for vaccination Acquired hypothyroidism Iron overload 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, unspecified bone marrow failure type (HCC) COMPREHENSIVE METABOLIC STAT 11/05/2018 Pure h ypercholesterolemia PANEL 1:03 PM CDT Hypothyroidism, unspecified type Need for vaccination Acquired hypothyroidism Iron overload 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, unspecified bone marrow failure type (HCC) HC COMPLETE BLD COUNT STAT 11/05/2018 Pure hyp ercholesterolemia W/AUTO DIFF 1:03 PM CDT Hypothyroidism, unspecified type Need for vaccination Acquired hypothyroidism Iron overload 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, unspecified bone marrow failure type (HCC) MANUAL DIFFERENTIAL STAT 10/03/2018 11:44 AM CDT ESTIMATED GFR STAT 10/03/2018 11:44 AM CDT THYROID STIMULATING STAT 10/03/2018 Pure hyper cholesterolemia HORMONE 11:44 AM CDT Hypothyroidism, unspecified type Need for vaccination Acquired hypothyroidism Iron overload 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, unspecified bone marrow failure type (HCC) LDH STAT 10/03/2018 Pure hyperchole sterolemia 11:44 AM CDT Hypothyroidism, unspecified type Need for vaccination Acquired hypothyroidism Iron overload 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, unspecified bone marrow failure type (HCC) MAGNESIUM LEVEL STAT 10/03/2018 Pure hyperchol esterolemia 11:44 AM CDT Hypothyroidism, unspecified type Need for vaccination Acquired hypothyroidism Iron overload 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, unspecified bone marrow failure type (HCC) COMPREHENSIVE METABOLIC STAT 10/03/2018 Pure h ypercholesterolemia PANEL 11:44 AM CDT Hypothyroidism, unspecified type Need for vaccination Acquired hypothyroidism Iron overload 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 Estimated GFR >=90 mL/min/1.73 m2 ATUL Comment: YAZIDI [employer] [facility] Interpretation G1 >=90 Normal or high G2 60-89 Mildly decreased G3a 45-59 Mildly to moderately decreased G3b 30-44 Moderately to severely decreased G4 15-29 Severely decreased G5 <15 Kidney failure The eGFR was calculated using the Chronic Kidney Disease Epidemiology Collaboration (CKD-EPI) equation. Interpretation is based on recommendations of the National Kidney Foundation-Kidney Disease Outcomes Quality Initiative (NKF-KDOQI) published in 2014. Specimen Performing Organization Address City/State/[facility] Ph one Number [facility] DEPARTMENT OF [address] [place] [address] PATHOLOGY AND GENOMIC MEDICINE [address] * Thyroid stimulating hormone (09/03/2019 11:30 AM CDT) Only the most recent of 8 results within the time period is included. TSH 25.15 (H) 0.27 - 4.20 uIU/mL [facility] Specimen Blood Narrative Performed At Unable to perform testing, specimen is HEMOLYZED. [facility] requested for K AND LDH. KELLY COWAN RN/DAVID notifie d PATHOLOGY AND by RGM at 09/03/2019 12:59. GENOMIC MEDICINE GLU results called to and read back by KELLY COWAN RN/JEROMETKhadra at 09/03/2019 12:59 by RGM. Performing Organization Address City/State/[facility] [place] one Number [facility] DEPARTMENT OF [address] [place] [address] PATHOLOGY AND GENOMIC MEDICINE [address] * T4, free (09/03/2019 11:30 AM CDT) Only the most recent of 4 results within the time period is included. T4, free 0.5 (L) 0.9 - 1.7 ng/dL [facility] Specimen Blood Narrative Performed At Unable to perform testing, specimen is HEMOLYZED. [facility] requested for K AND LDH. KELLY COWAN RN/MMSWATHIT0 notifie d PATHOLOGY AND by RGM at 09/03/2019 12:59. GENOMIC MEDICINE GLU results called to and read back by KELLY COWAN RN/JEROMET0 at 09/03/2019 12:59 by RGM. Performing Organization Address City/State[facility] Ph one Number [facility] DEPARTMENT OF [address] [place] [address] PATHOLOGY AND GENOMIC MEDICINE [address] * Magnesium level (09/03/2019 11:30 AM CDT) Only the most recent of 9 results within the time period is included. Magnesium 2.2 1.6 - 2.6 mg/dL [facility] Specimen Blood Performing Organization Address City/[facility] [place] one Number [facility] DEPARTMENT OF [address] [place] [address] PATHOLOGY AND GENOMIC MEDICINE [address] * LDH (09/03/2019 11:30 AM CDT) Only the most recent of 10 results within the time period is included. LDH Footnote 87 - 225 U/L [facility] Specimen Blood Performing Organization Address City/[facility] Ph one Number [facility] DEPARTMENT OF [address] [place] [address] PATHOLOGY AND GENOMIC MEDICINE [address] * Ferritin level (09/03/2019 11:30 AM CDT) Only the most recent of 8 results within the time period is included. Ferritin level 1,950 (H) 30 - 400 ng/mL [facility] Specimen Blood Performing Organization Address [facility] Ph one Number [facility] DEPARTMENT OF [address] [place] [address] PATHOLOGY AND GENOMIC MEDICINE [address] * Comprehensive metabolic panel (09/03/2019 11:30 AM CDT) Only the most recent of 10 results within the time period is included. Sodium 128 (L) 135 - 148 mEq/L [facility] Potassium Footnote 3.5 - 5.0 mEq/L [facility] Comment: [facility] Unable to perform testing, HOSPITAL specimen is HEMOLYZED. Recollect requested for K AND LDH. Chloride 91 (L) 98 - 112 mEq/L [facility] CO2 17 (L) 24 - 31 mEq/L [facility] Anion gap 20@ANIO (H) 7 - 15 mEq/L [facility] BUN 19 6 - 20 mg/dL [facility] Creatinine 0.89 0.70 - 1.20 mg/dL [facility] Glucose 411 (HH) 65 - 99 mg/dL [facility] Calcium 8.9 8.3 - 10.2 mg/dL [facility] Protein 7.4 6.3 - 8.3 g/dL [facility] Comment: [facility] 4.6-7.0 g/dL 1 week 4.4-7.6 g/dL 7 months-1year 5.1-7.3 g/dL 1-2 years 5.6-7.5 g/dL >3 years 6.0-8.0 g/dL 18-150 6.3-8.3 g/dL Albumin 3.6 3.5 - 5.0 g/dL [facility] A/G ratio 0.9 0.7 - 3.8 [facility] Alkaline 127 40 - 129 U/L [facility] phosphatase [facility] AST 49 10 - 50 U/L [facility] ALT 39 5 - 50 U/L [facility] Total bilirubin 0.3 0.0 - 1.2 mg/dL [facility] Specimen Blood Performing Organization Address City/State/Zipcode Ph one Number [facility] DEPARTMENT OF [address] [place] [address] PATHOLOGY AND GENOMIC MEDICINE [address] * CBC with platelet and differential (09/03/2019 11:01 AM CDT) Only the most recent of 9 results within the time period is included. WBC 5.80 4.50 - 11.00 k/uL [facility] RBC 4.37 (L) 4.40 - 6.00 m/uL [facility] HGB 14.6 14.0 - 18.0 g/dL [facility] HCT 40.3 (L) 41.0 - 51.0 % [facility] MCV 92.2 82.0 - 100.0 fL [facility] MCH 33.4 27.0 - 34.0 pg [facility] MCHC 36.2 31.0 - 37.0 g/dL [facility] RDW - SD 41.3 37.0 - 55.0 fL [facility] MPV 8.7 (L) 8.8 - 13.2 fL [facility] Platelet count 251 150 - 400 k/uL [facility] Neutrophils 52.4 39.0 - 69.0 % [facility] Lymphocytes 34.0 25.0 - 45.0 % [facility] Monocytes 10.0 0.0 - 10.0 % [facility] Eosinophils 3.1 0.0 - 5.0 % [facility] Basophils 0.5 0.0 - 1.0 % [facility] Specimen Blood Performing Organization Address City/State/Zipcode Ph one Number [facility] DEPARTMENT OF [address] [place] [address] PATHOLOGY AND GENOMIC MEDICINE [address] * Surgical pathology request (06/18/2019 1:38 PM TOP FLAVOR ATTENDANT) Pathologist Faisal [facility] DEPARTMENT OF PATHOLOGY AND GENOMIC MEDICINE Surgical See link below for PDF Lab [facility] OF PATHOLOGY report AND GENOMIC MEDICINE Result status This is Final Report for [facility] DEPARTME NT [id number] OF PATHOLOGY AND GENOMIC MEDICINE Specimen Performing Organization Address City/[facility] Ph one Number [facility] DEPARTMENT OF [address] [place] [address] PATHOLOGY AND GENOMIC MEDICINE * Bone marrow tray (06/18/2019 1:01 PM TOP FLAVOR ATTENDANT) Only the most recent of 2 results within the time period is included. Pathologist Faisal Bone marrow Done [facility] Specimen Fluid Performing Organization Address City/[facility] Ph one Number [facility] DEPARTMENT OF [address] [place] [address] PATHOLOGY AND GENOMIC MEDICINE [address] * Short tandem repeats (chmerism testing) (06/18/2019 1:00 PM TOP FLAVOR ATTENDANT) Only the most recent of 2 results within the time period is included. Pathologist Faisal Interpretation 9Monitoring Engraftment [facility] Sample # [facility] Name HOSPITAL Type Sample Date Received [id number], Jose (Pre-recipient)W.B.07-19-1702- [id number], [id number] (Donor)W.B.05-23-1701--1719- 4193Joel Roldan (Qidm-QYL-NJY)B.M.[id number], Jose (Post-BMT-G)B.M.06-18-2001 Twenty-four STR Loci tested: [id number] [id number] ta [id number] [id number] [id number] of Informative Loci: mononuclear cells (22) granulocytes (21) INTERPRETATION: DNA from mononuclear cells and granulocytes of post-transplant sample dated 06-18-19 demonstrates chimerism. The approximated percentage of donor origin DNA is: mononuclear cells 87%, granulocytes 97%. Average cell purity post-fractionation is 80% Mononuclear cells and 86% Granulocytes [facility] Short tandem See link below for PDF Lab [facility] repeats Report [facility] ([facility] testing) Specimen Performing Organization Address City/[facility] Ph one Number [facility] DEPARTMENT OF [address] [place] [address] PATHOLOGY AND GENOMIC MEDICINE [address] * Flow cytometry evaluation (06/18/2019 1:00 PM TOP FLAVOR ATTENDANT) [facility] Flow cytometry See link below for PDF [facility] Specimen Narrative Performed At This result has an attachment that is n ot available. Performing Organization Address City/State/[facility] Ph one Number [facility] DEPARTMENT OF [address] [place] [address] PATHOLOGY AND GENOMIC MEDICINE [facility] * Miscellaneous referral test (06/18/2019 12:00 PM TOP FLAVOR ATTENDANT) Misc test name Bone Marrow [facility] SHOWN ABOVE Misc test see note SHOWN ABOVE result Comment: CHROMOSOME/FISH ANALYSIS ONCOLOGY Chromosome Analysis Indication: MDS Sample Type: BONE MARROW METHOD OF ANALYSIS: GTG-Banding RESULTS:999 46,XY[20] INTERPRETATION : Normal male chromosome analysis with no clonal abnormalities observed. A Cancer Chromosomal Microarray Analysis (Test Code 9515) is also available to evaluate genomic aberrations that could be missed by conventional cytogenetic analysis. ---- FISH ONCOLOGY ANALYSIS Method of Analysis: FISH FISH Nuclei examined: 1000 Results: NORMAL 5q31 (EGR1) - Deletion NOT detected 7q31 (M9D982)- Deletion NOT detected 8 centromere (D8Z2) -Gain of chromosome 8 NOT detected 11q23 (KMT2A) -Gene rearrangement NOT detected 20q12 (PTPRT)- Deletion NOT detected INTERPRETATION : Normal FISH analysis for the above-named loci. Flourescence in situ hybridization (FISH) studies were performed on this specimen using a panel of DNA probes (from [employer]) designed to detect abnormalities commonly seen in myelodysplastic syndrome (MDS). At least two hundred nuclei were tonya lyzed from each probe. The vast majority of the nuclei studied showed a normal signal pattern for each probe, i.e., the results are normal. ISCN: nuc ayaka(EGR1,V2R103,D8Z2,KMT2A,PTP RT)x2[200] Test performed by: [facility] [address] [place] [id number] Specimen Narrative Performed At Bone Marrow [facility] DEPARTMENT OF PATHOLOGY AND GENOMIC MEDICINE Performing Organization Address City/State/[facility] Ph one Number [facility] DEPARTMENT OF [address] [place] [address] PATHOLOGY AND GENOMIC MEDICINE SHOWN ABOVE * 54 gene myeloid mutation test (06/18/2019 12:00 PM TOP FLAVOR ATTENDANT) Interpretation MUTATION(S) DETECTED: [facility] No Mutations Detected [facility] Amplicon coverage: 534 of HOSPITAL 538 amplicons (>99%) had >100x coverage and were included in the analysis. The following amplicons had <100x coverage and were excluded from the analysis: ATRX.exon.28.line.272.chrX.768 [id number]_tile_186ATRX.ex on.28.line.272.chrX.[id number]_tile_229ATRX.exon.20.l ine.280.chrX.[id number] _tile_18STAG2.CDS.12.line.298. chrX.[id number]_tile_ 10 This case was reviewed in a [facility] consensus conference by Drs. Gill Becerril and Cecilio Cho who agree with the above interpretation. 54 genes analyzed: ABL1, ASXL1, ATRX, BCOR, BCORL1, BRAF, CALR, CBL, CBLB, CBLC, CDKN2A, CEBPA, CSF3R, CUX1, DNMT3A, ETV6, EZH2, FBXW7, FLT3, GATA1, GATA2, GNAS, HRAS, IDH1, IDH2, IKZF1, JAK2, JAK3, KDM6A, KIT, KMT2A, KRAS, MPL, MYD88, NOTCH1, NPM1, NRAS, PDGFRA, PHF6, PTEN, PTPN11, RAD21, RUNX1, SETBP1, SF3B1, SMC1A, SMC3, SRSF2, STAG2, TET2, TP53, U2AF1, WT1 and ZRSR2 54GMT result Wild Type [facility] 54 gene myeloid See link below for PDF Lab [facility] mutation test ReportComment: Case Number: YAZIDI [id number] [facility] Specimen Performing Organization Address [facility] Ph one Number [facility] DEPARTMENT OF [address] [place] [address] PATHOLOGY AND GENOMIC MEDICINE [address] * Cytomegalovirus antigen (11/05/2018 1:03 PM CDT) [facility] CMV antigen Not-detected Not-detected [facility] Comment: YAZ[facility]I Reporting Unit: HOSPITAL Cytomegalovirus Antigen Positive Leukocytes by IFA. Note: This assay is approved for qualitative analysis by the FDA. Quantitative procedures have been developed and validated by the Diagnostic Immunology Laboratory within [facility]. CMV negative cells per 50,000 cells examined. Specimen Blood Performing Organization Address City/[facility] Ph one Number [facility] DEPARTMENT OF [address] [place] [address] PATHOLOGY AND GENOMIC MEDICINE [address] * Manual differential (10/03/2018 11:44 AM CDT) [facility] Manual PERFORMED [facility] differential [facility] Neutrophils 52.0 39.0 - 69.0 % [facility] Lymphocytes 44.0 25.0 - 45.0 % [facility] Monocytes 2.0 0.0 - 10.0 % [facility] Eosinophils 2.0 0.0 - 5.0 % [facility] Basophils 0.0 0.0 - 1.0 % [facility] Metamyelocytes 0 % [facility] Promyelocytes 0 % [facility] Nucleated RBC 1 /100 WBC [facility] Platelet slide Makayla adequate [facility] Anisocytosis Moderate [facility] Polychromasia Moderate [facility] Tear drop cells Occasional [facility] Spherocytes Occasional [facility] Ovalocytes Moderate [facility] Specimen Performing Organization Address City/State/Zipcode Ph one Number [facility] DEPARTMENT OF [address] [place] [address] PATHOLOGY AND GENOMIC MEDICINE [address] [address] HOSPITAL after 09/14/2018 Insurance Type Payer Benefit Subscriber ID Effective Phone Address Plan / Dates Group O BCBS COMMERCIAL MY BLUE xxxxxxxxxxxx 2019-P HEALTH resent Advance Directives For more information, please contact: [phone] Patient Machine Preservative Filler Explanation Type Date Recorded Advance Directives, 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
--- OUTSIDE RECORDS SUMMARY | 2019-09-15 10:03 | XMS REPORT | Clinical Summary ---
Author Author HELEN [facility] Organization [facility] Address Unknown Phone Unavailable Care Team Providers Care Branch Service Specialist Name Role Phone Sharpless PCP Allergies Comments Active Allergy Reactions Severity Noted Date Blood Administration Sets Rash Low 07/2015 Medications End Date Status Medication Sig Dispensed Refills Start Date Active gemfibrozil (LOPID) 600 Take 600 mg 0 MG tablet by mouth 2 (two) times daily before meals. Active lisinopril Take 10 mg by 0 (PRINIVIL,ZESTRIL) 10 MG mouth daily. tablet Active pantoprazole (PROTONIX) Take 40 mg by 0 40 MG tablet mouth daily. Active insulin glargine (LANTUS) Use as 10 mL 0 100 unit/mL injection directed. 6 Active cycloSPORINE modified Take 2 120 capsule 0 (NEORAL) 100 MG capsule capsules (200 6 mg total) by mouth 2 (two) times daily. Active acyclovir (ZOVIRAX) 400 Take 1 tablet 30 tablet 0 MG tablet (400 mg 6 total) by mouth 2 (two) times daily. Active ciprofloxacin HCl (CIPRO) Take 1 tablet 60 tablet 0 500 MG tablet (500 mg 6 total) by mouth 2 (two) times daily. Active fluconazole (DIFLUCAN) Take 1 tablet 30 tablet 0 1 200 MG tablet (200 mg 6 total) by mouth daily. Active predniSONE (DELTASONE) 5 Take 1 tablet 60 tablet 0 MG tablet (5 mg total) 6 by mouth 2 (two) times daily. Active Problems Problem Noted Date Idiopathic aplastic anemia 03/23/2016 YENI (acute kidney injury) 03/23/2016 Chest pain 03/22/2016 Anemia, unspecified 02/24/2016 Thrombocytopenia 02/24/2016 Hypertension, essential 02/04/2016 Diabetes mellitus type 2, uncontrolled, without compl ications 02/04/2016 Hyponatremia 02/04/2016 Non morbid obesity 02/04/2016 Neutropenia 02/04/2016 Aplastic anemia 02/03/2016 Social History Date Tobacco Use Types Packs/Day Years Used Never Smoker Alcohol Use Drinks/Week oz/Week Comments No Sex Assigned at Date Recorded Not on file Industry Job Start Date Occupation Not on file Not on file Not on file Travel End Travel History Travel Start No recent travel history available. Last Filed Vital Signs Not on file Plan of Treatment Health Maintenance Due Date Last Done Comments INFLUENZA VACCINE 01/20/2018 Results Not on fileafter 09/14/2018 Insurance Payer Benefit Subscriber ID Type Phone Address Plan / Group [employer] xxxxxxxxxxxx HMO/POS [facility] CHOICE EXCHANGE (Home) [place] [address] Advance Directives For more information, please contact: [facility] [address] [place] [address] Date Inactivated Comments Code Status Date Activated 03/23/2016 8:46 PM Full Code 03/22/2016 7:53 PM This code status was determined by: Patient 02/25/2016 1:18 AM Full Code 02/24/2016 4:27 PM This code status was determined by: Patient 02/13/2016 7:08 PM Full Code 02/03/2016 11:19 PM This code status was determined by: Patient
--- OUTSIDE RECORDS SUMMARY | 2019-09-15 10:03 | XMS REPORT ---
Author Author [facility] Organization [facility] t Address 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 MANAGERWellington Attphys Natasha Cruz MD Attphys Payers Payer Name Policy Type Policy Number Effective Date Expiration Date S jenniffer [employer]BS COMM[employer]CIAL [employer]xxxxxxxxxxxx2019-PresentHMO xxxxxxxxxxxx 2019 00:00:00 [facility] Ppo [id number] I [facility] Problems Condition Name Condition Details Condition Category Status Onset Date Resolution Date Last Treatment Date Treating Clinician Comments Source Uncontrolled type 2 diabetes mellitus Uncontrolled type 2 di abetes mellitus Disease Active 2018-02-18 00:00:00 Michael Robledo Pure hypercholesterolemia Pure hypercholesterolemia Disease Ac tive 2017-12-03 00:00:[address] Other sleep apnea Other sleep apnea Disease Active 2017-10-03 00:00:00 Michael Robledo Hypothyroid Hypothyroid Disease Active 2017-10-03 00:00:00 Michael Robledo Need for vaccination Need for vaccination Disease Active 00:00:00 Michael Robledo Other specified hypothyroidism Other specified hypothyroidism Disea se Active 2017-09-19 00:00:00 Overview: 1. 09/19/17 TSH 103.7, T4 <0.1. Commenced synthroid. Michael Robledo Acquired hypothyroidism Acquired hypothyroidism Disease Active 2017-08-29 00:00:00 Michael Del Torojerardo dao Iron overload Iron overload Disease Active 2017-07-03 00:00:00 Michael Robledo Fungal infection of skin Fungal infection of skin Disease Acti ve 2017-01-17 00:00:00 Michael Del Torojerardo dao Skin nodule Skin nodule Disease Active 2017-01-10 00:00:00 Overview: 1. 01/08/17 bx of left foot nodule. Vfend commenced. 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 10/15/16 CMV 5-10. 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 Bone marrow tx 09/20/16 2.75 x 10 (8) TNC/kg Engrafted 10/06. Mild nausea no Gvhd. Donor CMV + ABO 1. 7 PB STR 100% donor. 2. 8 PB STR 100% donor. 3. 9 BM 50% cellular, Flow negative. Cytogenetics 46 XY STR 100% donor.4. 03/20/17 PB STR 88% mononuclear 96% granulocytes donor.5. 06/13/17 PB STR 71% mononuclear 100% granulocytes donor. 6. 09/19/17 BM 40-50% cellular, no MDS. Flow negative. Cytogenetics 46 XY STR 93% mononuclear 96% tgsyatbfyyey56/16/19 PB STR 64% mononuclear 97% granulocyte donor. 06/18/19 BM 40-60% cellular with normal maturation. Flow negative. Cytogenetics 46 XY FISH MDS normal STR 87% mononuclear 97% granulocytes donor. NGS NO MUTATIONS Michael Robledo Toxoplasmosis Toxoplasmosis Disease Active 2016-07-27 00:00:00 Overview: 1. 07/19/16 Toxo IgG+ Michael Robledo Hepatic steatosis Hepatic steatosis Disease Active 2016-07-19 00:00:00 Overview: 1. 01/2016, Ultrasound at [facility] Michael Robledo Aplastic anemia Aplastic anemia Disease Active 2016-04-12 00:00:00 Overview: 1. Dx 05/04/2014 BM 5-10 % cellularity, Cytogenetics 46 XY PB flow PNH negative.2. ATG (equine) CSA improved, but discontinued CSA due to lack of insurance. Off 06/2015. 3. Relapsed 01/12/16 BM 10% 4. ATG (rabbit) CSA/ steroids and Promacta. Increased to 150mg 03/2016.5. 07/19/16 BM 10-50% cytogenetics 46 XY 07/27/16 PB PNH flow negative Michael Robledo Type 2 diabetes mellitus without complic ation, with long-term current use of insulin Type 2 diabetes mellitus without complic ation, with long-term current use of insulin Disease Active 2015-04-22 00:00:00 Overv iew: 1. 2015 Michael Robledo Essential hypertension Essential hypertension Disease Active 2013-04-22 00:00:00 Overview: 1. 2013 Michael Wi thodist Other hyperlipidemia Other hyperlipidemia Disease Active 00:00:00 Overview: 1. 2013 Michael Robledo Hypertriglyceridemia Hypertriglyceridemia Problem Active [facility] Rhabdomyolysis Rhabdomyolysis Problem Active [facility] Allergies, Adverse Reactions, Alerts Allergy Name Allergy Type Status Severity Reaction(s) Onset Date Inacti ve Date Treating Clinician Comments Source Posaconazole Propensity to adverse reactions to drug Active 2017-05-29 00:00:00 Increase alk phos Rodriguez Metho dist Other Propensity to adverse reactions Active Rash 00:00:00 Platelet transfusion caused a rash Michael Robledo Family History Family Member Diagnosis Comments Start Date Stop Date Source Natural father Heart attack Michael Robledo Natural sister Diabetes type I [place] Social History Social Habit Start Date Stop Date Quantity Comments Source Sex Assigned At Aurelia wagner Rastafari Exposure to SARS-CoV-2 (event) Not sure Michael Robledo Alcohol intake 2017-03-25 00:00:00 2017-03-25 00:00:00 Current drinker of alcohol (finding) Michael Robledo Alcohol Comment 2016-05-10 00:00:00 2016-05-10 00:00:00 none recently Michael Robledo Smoking Status Start Date Stop Date Source Never smoker Michael Montemayor t Medications Ordered Medication Name Filled Medication Name Start Date Stop Da te Current Medication? Ordering Clinician Indication Dosage Frequency Signature (SIG) Comments Components Source levothyroxine (SYNTHROID) 125 mcg tablet 2019-08 12:34:42 2019-09-03 00:00:00 No 125ug QD Take 125 mcg by mouth daily. Michael Robledo insulin lispro (HumaLOG) 100 unit/mL injection 2019-09-03 11:46: 48 Yes [id number] 3 (three) times a day as nee ded. Per sliding scale provided by endocrinology Michael lees multivitamin (THERAGRAN) tablet 2019-09-03 11:20:08 Yes 1{tbl} QD Take 1 tablet by mouth daily. Michael Robledo fenofibrate (TRICOR) 145 MG tablet 2019-09-03 00:00:00 Yes 145mg QD Take 1 tablet (145 mg total) by mouth daily. Michael Robledo levothyroxine (SYNTHROID) 125 mcg tablet 2019-09-03 00:00:00 Yes 125ug QD Take 1 tablet (125 mcg total) by mouth daily. Michael Robledo rosuvastatin (CRESTOR) 20 MG tablet 2019-07-03 00:00:0 0 2019-09-03 00:00:00 No TAKE 1 TABLET BY MOUTH DAILY Michael Robledo levothyroxine (SYNTHROID, LEVOXYL) 100 mcg tablet 2019-06-18 09:03:10 2019-06-18 00:00:00 No 100ug Q.5D Take 100 mcg by mouth 2 (two) times a day. Michael Robledo amLODIPine (NORVASC) 10 mg tablet 2019-06-18 00:00:00 2020 23:59:00 Yes 10mg QD Take 1 tablet (10 mg total) by mouth crissy ly. Michael Robledo Fenofibrate (Tricor) 145 Mg Tab Fenofibrate (Tricor) 145 Mg Tab 2019-06-01 00:00:00 Yes Meme Juan Neotsu Operations Inspector 145 Daily [facility] Levothyroxine Sodium (Synthroid) 100 Mcg Tab Levothyro xine Sodium (Synthroid) 100 Mcg Tab 2019-06-01 00:00:00 Yes Meme M Neotsu Operations Inspector 250 Daily@0600 [facility] fenofibrate (TRICOR) 145 MG tablet 2019-06-01 00:00:00 202 00:00:00 No 1{tbl} QD Take 1 tablet by mouth daily. Michael Robledo SYNTHROID 200 mcg tablet 2019-04-01 00:00:00 2019-07-02 00:00:00 No 200ug QD Take 200 mcg by mouth every morning. 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 Rodriguez Me thodist LANTUS 100 unit/mL injection (vial) 2017-05-06 00:00:0 0 2019-07-02 00:00:00 No INJECT 20 UNITS IN THE MORNING AND 20 UN ITS AT NIGHT Michael Robledo Amlodipine Besylate 5 Mg Tablet Amlodipine Besylate 5 Mg Tablet Yes [address] [facility] Insulin Glargine (Lantus 3ML Pen) 100 Units/1 Ml Inj I nsulin Glargine (Lantus 3ML Pen) 100 Units/1 Ml Inj Yes 32 Bedtime [facility] Insulin Lispro (Humalog) 100 Unit/1 Ml Insuln.pen Insu shamika Lispro (Humalog) 100 Unit/1 Ml Insuln.pen Yes 12 Three Times Daily With Meals [facility] Levothyroxine Sodium (Synthroid) 100 Mcg Tab Levothyro xine Sodium (Synthroid) 100 Mcg Tab Yes 200 Today At 6:00AM [facility] Gemfibrozil 600 Mg Tablet, 1 Tab Oral Gemfibrozil 600 Mg Tablet, 1 Tab Oral 2019-06-01 00:00:00 No 1 Twice A Day [facility] Immunizations Ordered Immunization Name Filled Immunization Name Date Status Comments Source Zoster Vaccine Recombinant 2019-02-04 00:00:00 Completed [place] FLUCELVAX QUAD PF 2019-02-04 00:00:00 Completed [place] Zoster Vaccine Recombinant 2018-12-05 00:00:00 Completed [place] Rastafari MMR 2018-11-05 00:00:00 Completed Rey Del Toroist MMR 2018-10-03 00:00:00 Completed [place] Hib (PRP-T) 2018-08-15 00:00:00 Completed Jose G Del Toroist Pneumococcal Polysaccharide 2018-08-15 00:00:00 Completed Rodriguez Rastafari Hepatitis A 2018-07-18 00:00:00 Completed Jose G Del Toroist Pneumococcal Conjugate 13-Valent 2018-07-18 00:00:00 Compl eted Rodriguez Rastafari IPV 2018-04-30 00:00:00 Completed [place] Hepatitis B 2018-04-30 00:00:00 Completed Jose G molina Rastafari Tdap 2018-01-29 00:00:00 Completed [place] IPV 2018-01-29 00:00:00 Completed [place] FLUCELVAX QUAD PF 2018-01-29 00:00:00 Completed Michael Robledo Hepatitis A 2017-12-31 00:00:00 Completed [place] Meningococcal MCV4P 2017-12-31 00:00:00 Completed Rodriguez Rastafari Hib (PRP-T) 2017-12-31 00:00:00 Completed [place] Tdap 2017-12-03 00:00:00 Completed [place] IPV 2017-12-03 00:00:00 Completed [place] Pneumococcal Conjugate 13-Valent 2017-12-03 00:00:00 Compl eted [place] Rastafari Hepatitis B 2017-11-05 00:00:00 Completed [place] Hib (PRP-T) 2017-11-05 00:00:00 Completed [place] Tdap 2017-10-03 00:00:00 Completed [place] Hepatitis B 2017-10-03 00:00:00 Completed Jose G ton Rastafari FLUCELVAX QUAD PF 2017-05-09 00:00:00 Completed Michael Robledo Vital Signs Vital Name Observation Time Observation Value Comments Source Systolic blood pressure 2019-09-03 12:16:00 151 mm[Hg] Michael Robledo Diastolic blood pressure 2019-09-03 12:16:00 90 mm[Hg] Michael Del Toroist Heart rate 2019-09-03 12:16:00 90 /min Michael Robledo Oxygen saturation in Arterial blood by Pulse oximetry 09-02 12:16:00 94 /min Michael Robledo Body temperature 2019-09-03 11:25:00 36.5 Irina Jose G molina Rastafari Respiratory rate 2019-09-03 11:25:00 20 /min Jose G molina Rastafari Body height 2019-09-03 11:25:00 177.8 cm Michael Robledo Body weight 2019-09-03 11:25:00 114.9 kg Michael Robledo BMI 2019-09-03 11:25:00 36.35 kg/m2 Michael Robledo Procedures Procedure Date / Time Performed Performing Clinician [facility] e COMPREHENSIVE METABOLIC PANEL 2019-09-03 11:30:00 Lauren Sanchez MAGNESIUM LEVEL 2019-09-03 11:30:00 Miladis Sanchez LDH 2019-09-03 11:30:00 Miladis Sanchez FERRITIN LEVEL 2019-09-03 11:30:00 Miladis Sanchez THYROID STIMULATING HORMONE 2019-09-03 11:30:00 Miladis Sanchez T4, FREE 2019-09-03 11:30:00 Miladis Sanchez ESTIMATED GFR 2019-09-03 11:30:00 Miladis Sanchez HC COMPLETE BLD COUNT W/AUTO DIFF 2019-09-03 11:01:00 Miladis Sanchez FERRITIN LEVEL 2019-07-02 08:55:00 Vu, Shilpa [place] gray THYROID STIMULATING HORMONE 2019-07-02 08:55:00 Vu, Shilpa Robledo T4, FREE 2019-07-02 08:55:00 Vu, Shilpa gray HC COMPLETE BLD COUNT W/AUTO DIFF 2019-07-02 08:55:00 Kenny Rubin COMPREHENSIVE METABOLIC PANEL 2019-07-02 08:55:00 Devon Rubin MAGNESIUM LEVEL 2019-07-02 08:55:00 Devon Rubin LDH 2019-07-02 08:55:00 Devon Rubin ESTIMATED GFR 2019-07-02 08:55:00 Vu, Shilpa gray SURGICAL PATHOLOGY REQUEST 2019-06-18 13:38:00 Devon Rubin BONE MARROW TRAY 2019-06-18 13:01:00 Devon Rubin Met donny FLOW CYTOMETRY EVALUATION 2019-06-18 13:00:00 Devon Rubin BONE MARROW TRAY 2019-06-18 13:00:00 Devon Rubin Met donny SHORT TANDEM REPEATS (CHMERISM TESTING) 2019-06-18 13:00:00 Devon Corey 53 GENE MYELOID MUTATION TEST 2019-06-18 12:00:00 Devon Rubin MISCELLANEOUS REFERRAL TEST 2019-06-18 12:00:00 Devon Rubin HC COMPLETE BLD COUNT W/AUTO DIFF 2019-06-18 11:23:00 Gillian Penn COMPREHENSIVE METABOLIC PANEL 2019-06-18 09:01:00 Sarina Penn Rastafari MAGNESIUM LEVEL 2019-06-18 09:01:00 Sarina Penn Meth odist LDH 2019-06-18 09:01:00 Sarina Penn Meth odist FERRITIN LEVEL 2019-06-18 09:01:00 VuShilpa Michael Meth odist THYROID STIMULATING HORMONE 2019-06-18 09:01:00 VuShilpa Rastafari T4, FREE 2019-06-18 09:01:00 Vu, Shilpa [place] Michael Meth odist ESTIMATED GFR 2019-06-18 09:01:00 Sarina Penn odist HC COMPLETE BLD COUNT W/AUTO DIFF 2019-03-11 14:00:00 Gillian Penn Rastafari COMPREHENSIVE METABOLIC PANEL 2019-03-11 13:32:00 Sarina Penn Rastafari MAGNESIUM LEVEL 2019-03-11 13:32:00 Sarina Penn Meth odist LDH 2019-03-11 13:32:00 Sarina Penn Meth odist FERRITIN LEVEL 2019-03-11 13:32:00 Vu, Shilpa [place] Michael Meth odist THYROID STIMULATING HORMONE 2019-03-11 13:32:00 Vu, Shilpa [place] Michael Rastafari T4, FREE 2019-03-11 13:32:00 Vu, Shilpa [place] Michael Meth odist ESTIMATED GFR 2019-03-11 13:32:00 Sarina Penn odist SHORT TANDEM REPEATS (CHMERISM TESTING) 2019-02-04 17:06:00 Lane harrell Devon Michael Rastafari COMPREHENSIVE METABOLIC PANEL 2019-02-04 14:16:00 Sarina Penn Rastafari LDH 2019-02-04 14:16:00 Sarina Penn Meth odist ESTIMATED GFR 2019-02-04 14:16:00 Sarina Penn Meth odist HC COMPLETE BLD COUNT W/AUTO DIFF 2019-02-04 12:55:00 Gillian Penn Rastafari COMPREHENSIVE METABOLIC PANEL 2019-02-04 12:55:00 Sarina Penn Rastafari MAGNESIUM LEVEL 2019-02-04 12:55:00 Sarina Penn Meth odist LDH 2019-02-04 12:55:00 Sarina Penn Meth odist FERRITIN LEVEL 2019-02-04 12:55:00 Vu, Shilpa [place] Michael Meth odist ESTIMATED GFR 2019-02-04 12:55:00 Sarina Penn Meth odist HC COMPLETE BLD COUNT W/AUTO DIFF 2019-01-08 13:23:00 Gillian Penn Rastafari COMPREHENSIVE METABOLIC PANEL 2019-01-08 13:23:00 Sarina Penn Rastafari MAGNESIUM LEVEL 2019-01-08 13:23:00 Sarina Penn Meth odist LDH 2019-01-08 13:23:00 Sarina Penn Meth odist THYROID STIMULATING HORMONE 2019-01-08 13:23:00 Shilpa Cam Rastafari FERRITIN LEVEL 2019-01-08 13:23:00 Shilpa Cam Meth odist ESTIMATED GFR 2019-01-08 13:23:00 Sarina Penn Meth odist HC COMPLETE BLD COUNT W/AUTO DIFF 2018-12-05 13:19:00 FiliGillian Rastafari COMPREHENSIVE METABOLIC PANEL 2018-12-05 13:19:00 FiliSarina Rastafari MAGNESIUM LEVEL 2018-12-05 13:19:00 FiliSarina Meth odist LDH 2018-12-05 13:19:00 FiliSarina Meth odist THYROID STIMULATING HORMONE 2018-12-05 13:19:00 VuShilpa Rastafari FERRITIN LEVEL 2018-12-05 13:19:00 Shilpa Cam Meth odist ESTIMATED GFR 2018-12-05 13:19:00 Sarina Penn odist HC COMPLETE BLD COUNT W/AUTO DIFF 2018-11-05 13:03:00 FiliGillian Rastafari COMPREHENSIVE METABOLIC PANEL 2018-11-05 13:03:00 FiliSarina Rastafari MAGNESIUM LEVEL 2018-11-05 13:03:00 Sarina Penn Meth odist LDH 2018-11-05 13:03:00 Sarina Penn Meth odist CYTOMEGALOVIRUS ANTIGEN 2018-11-05 13:03:00 FiliSarina Rastafari THYROID STIMULATING HORMONE 2018-11-05 13:03:00 Shilpa Cam Rastafari ESTIMATED GFR 2018-11-05 13:03:00 Sarina Penn Meth odist FERRITIN LEVEL 2018-11-05 13:03:00 Sarina Penn Meth odist CBC WITH PLATELET AND DIFFERENTIAL 2018-10-03 11:44:00 FiliLibby Michael Robledo COMPREHENSIVE METABOLIC PANEL 2018-10-03 11:44:00 Fili Sarina Robledo MAGNESIUM LEVEL 2018-10-03 11:44:00 FiliSarina Michael gray LDH 2018-10-03 11:44:00 Sarina Penn THYROID STIMULATING HORMONE 2018-10-03 11:44:00 Fili Sarina Robledo ESTIMATED GFR 2018-10-03 11:44:00 FiliSarina Michael Ena isaac MANUAL DIFFERENTIAL 2018-10-03 11:44:00 Sarina Penn Plan of Care Planned Activity Planned Date Details Comments Source Future Scheduled Test 2019-11-21 00:00:00 INFLUENZA VACCINE [code = INFLUENZA VACCINE] [facility] Future Scheduled Test 2019-07-23 00:00:00 COLONOSCOPY SCREEN ING [code = COLONOSCOPY SCREENING] [facility] Future Scheduled Test 2019-07-23 00:00:00 SHINGLES VACCINES (#1) [code = SHINGLES VACCINES (#1)] [facility] Future Scheduled Test 1979-07-23 00:00:00 DIABETIC FOOT EXAM [code = DIABETIC FOOT EXAM] [facility] Future Scheduled Test 1969 00:00:00 DIABETIC RETINAL E YE EXAM [code = DIABETIC RETINAL EYE EXAM] [place] Rastafari Encounters Start Date/Time End Date/Time [facility] Type [facility] ID Source 2019-09-03 00:00:00 2019-09-03 00:00:00 Outpatient [facility] [id number] Michael Robledo 2019-07-02 00:00:00 2019-07-02 00:00:00 Outpatient [facility] [id number] Michael Del Toroist 2019-06-18 00:00:00 2019-06-18 00:00:00 Outpatient [facility] [id number] Michael Del Toroist 2019-05-29 18:05:00 2019-06-01 15:31:00 Discharged Inpatient (obs) [facility] [id number] [facility] 2019-04-24 00:00:00 2019-04-24 00:00:00 Outpatient [facility] [id number] [facility] 2019-04-08 00:00:00 2019-04-08 00:00:00 Outpatient [facility] [id number] [facility] 2019-03-11 00:00:00 2019-03-11 00:00:00 Outpatient [facility] [id number] [facility] 2019-02-04 00:00:00 2019-02-04 00:00:00 Outpatient [facility] [id number] [facility] 2019-01-08 00:00:00 2019-01-08 00:00:00 Outpatient [facility] [id number] [facility] Results Test Description Test Time Test Comments Results Result Comments Source T4, free 2019-09-03 12:59:51 Test Item T4, free (test code = 3024-7) 0.5 ng/dL 0.9-1.7 L DRAGAN (test code = DRAGAN) Unable to perform testing, s pecimen is HEMOLYZED. Recollect requested for K AND LDH. KELLY COWAN RN/MMBMT0 notified by RG at 09/03/2019 12:59.GLU results called to and read back by KELLY COWAN RN/MMBMT0 at 09/03/2019 12:59 by [facility]. Lab Interpretation (test code = 06211-4) [facility]normal [facility] [id number] 12:59:51* Test Item Value Reference Range Interpretation Comments TSH (test code = 3016-3) 25.15 0.27- 4.20 uIU/mL H DRAGAN (test code = DRAGAN) Unable to perform testing, s pecimen is HEMOLYZED. Recollect requested for K AND LDH. KELLY COWAN RN/MMBMT0 notified by RGM at 09/03/2019 12:59.GLU results called to and read back by KELLY COWAN RN/MMBMT0 at 09/03/2019 12:59 by [facility]. Lab Interpretation (test code = 51516-0) Abnormal [place] [facility] [id number] 12:56:27* Test Item Value Reference Range Interpretation Comments Sodium (test code = 2951-2) 128 135- 148 mEq/L L Potassium (test code = 2823-3) Footnote 3.5- 5.0 mEq/L Unable to perform testing, specimen is HEMOLYZED. Recollect requested for K AND LDH. Chloride (test code = 2075-0) 91 98- 112 mEq/L L CO2 (test code = 2027-9) 17 24- 31 mEq/L L Anion gap (test code = 76277-8) 20@ANIO 7- 15 mEq/L H BUN (test code = 3094-0) 19 mg/dL 6-20 Creatinine (test code = 2160-0) 0.89 mg/dL 0.7-1.2 Glucose (test code = 2345-7) 411 mg/dL 65-99 HH Calcium (test code = 24399-0) 8.9 mg/dL 8.3-10.2 Protein (test code = 2885-2) 7.4 g/dL 6.3-8.3 -[place] 4.6- 7.0 g/dL1 week 4.4-7.6 g/dL7 months-1year 5.1-7.3 g/dL1-2 years 5.6-7.5 g/dL>3 years 6.0-8.0 g/kJ32-228 6.3-8.3 g/dL Albumin (test code = 1751-7) 3.6 g/dL 3.5-5 A/G ratio (test code = 1759-0) 0.9 0.7-3.8 Alkaline phosphatase (test code = 6768-6) 127 U/L 40-129 AST (test code = 1920-8) 49 U/L 10-50 ALT (test code = 1742-6) 39 U/L 5-50 Total bilirubin (test code = 1974-) 0.3 mg/dL 0-1.2 Lab Interpretation (test code = 37365-6) Abnormal [place] [facility] [id number] 12:56:27* Test Item Value Reference Range Interpretation Comments Ferritin level (test code = 2276-4) 1950 ng/mL 30-400 H Lab Interpretation (test code = 47110-4) Abnormal [place] [facility] [id number] 12:56:27* Test Item Value Reference Range Interpretation Comments Magnesium (test code = 54129-6) 2.2 mg/dL 1.6-2.6 Michael MethodistEstimated [id number] 12:56:27* Test Item Value Reference Range Interpretation Comments Estimated GFR (test code = 5488) >=90 mL/min/1.73 m2 Catergory Units InterpretationG1 >=90 Normal or highG2 60-89 Mildly hmitrfeynH6u 45-59 Mildly to moderately isyjrqdqoC5d 30-44 Moderately to severely decreasedG4 15-29 Severely decreasedG5 <15 Kidney failureThe eGFR was calculated using the Chronic Kidney Disease Epidemiology Collaboration (CKD-EPI) equation. Interpretation is based on recommendations of the National Kidney Foundation-Kidney Disease Outcomes Quality Initiative (NKF-KDOQI) published in 2014. Michael RobledoVugrsvwqcFUE1256-86-80 12:56:17* Test Item Value Reference Range Interpretation Comments LDH (test code = 90735-1) Footnote 03-317 Michael MethodistCBC with platelet and wbqtwjxsywym4599-92-28 11:46:39* Test Item Value Reference Range Interpretation Comments WBC (test code = 34144-5) 5.80 4.50- 11.00 k/uL RBC (test code = 59192-1) 4.37 m/uL 4.4-6 L HGB (test code = 718-7) 14.6 g/dL 14-18 HCT (test code = 4544-3) 40.3 % 41-51 L MCV (test code = 787-2) 92.2 fL 82-100 MCH (test code = 785-6) 33.4 pg 27-34 MCHC (test code = 786-4) 36.2 g/dL 31-37 RDW - SD (test code = 70613-1) 41.3 fL 37-55 MPV (test code = 86248-0) 8.7 fL 8.8-13.2 L Platelet count (test code = 07337-5) 251 150- 400 k/uL Neutrophils (test code = 09206-5) 52.4 % 39-69 Lymphocytes (test code = 20094-8) 34.0 % 25-45 Monocytes (test code = 89497-6) 10.0 % 0-10 Eosinophils (test code = 69482-2) 3.1 % 0-5 Basophils (test code = 81659-8) 0.5 % 0-1 Lab Interpretation (test code = 58679-0) Abnormal Michael Znwsggeak79 gene myeloid mutation [id number] 12:11:52* Test Item Value Reference Range Interpretation Comments Interpretation (test code = 7055725) MUTATION(S) DETEC GEE:No Mutations DetectedAmplicon coverage: 534 of 538 amplicons (>99%) had >100x coverage and were included in the analysis. The following amplicons had <100x coverage and we re excluded from the analysis:ATRX.exon.28.line.272.[id number]_[id number].exon.28.line. 272.chrX.[id number]_tile_229ATRX.exon.20.line.280.chrX.[id number]_ tile_18STAG2.CDS.12.line.298.chrX.[id number]_tile_10This case was reviewed in a [facility] consensus conference by Drs. Gill Becerril and Cecilio Cho who agree with the above interpretation.54 genes analyzed: ABL1, ASXL1, ATRX, BCOR, BCORL1, BRAF, CALR, CBL, CBLB, CBLC, CDKN2A, CEBPA, CSF3R, CUX1, DNMT3A, ETV6, EZH2, FBXW7, FLT3, GATA1, GATA2, GNAS, HRAS, IDH1, IDH2, IKZF1, JAK2, JAK3, KDM6A, KIT, KMT2A, KRAS, MPL, MYD88, NOTCH1, NPM1, NRAS, PDGFRA, PHF6, PTEN, PTPN11, RAD21, RUNX1, SETBP1, SF3B1, SMC1A, SMC3, SRSF2, STAG2, TET2, TP53, U2AF1, WT1 and ZRSR2 54GMT result (test code = 8946999) Wild Type 54 gene myeloid mutation test (test code = 6349514) Se e link below for PDF Lab Report [id number] [facility] MethodistMiscellaneous referral etlx4399-90-19 19:15:12* Test Item Value Reference Range Interpretation Comments [facility] [place] test name (test code = 2566) Bone Marrow [facility] test result (test code = 1730) see note CHROMOSOME/FISH ANALYSIS ONCOLOGYChromosome AnalysisIndication: MDSSample Type: BONE MARROW METHOD OF ANALYSIS: GTG-BandingRESULTS:00211,XY[20]INTERPRETATION :Normal male chromosome analysis with no clonal abnormalities observed.A Cancer Chromosomal Microarray Analysis (Test Code 9515) is also available to evaluate genomic aberrations that could be missed by conventional cytogenetic analysis.-------- FISH ONCOLOGY ANALYSISMethod of Analysis: FISHFISH Nuclei examined: 1000Results:VVAHEF8e80 (EGR1) - Deletion NOT olfgbuek0r53 (I8O985)- Deletion NOT detected8 centromere (D8Z2) -Gain of chromosome 8 NOT qxktwxsz72b76 (KMT2A) -Gene rearrangement NOT wtexoyxw38y55 (PTPRT)- Deletion NOT detectedINTERPRETATION :Normal FISH analysis for the above-named loci.Flourescence in situ hybridization (FISH) studies were performed on this specimen using a panel of DNA probes (from [employer]) designed to detect abnormalities commonly seen in myelodysplastic syndrome (MDS). At least two hundred nuclei were tonya lyzed from each probe. The vast majority of the nuclei studied showed a normal signal pattern for each probe, i.e., the results are normal.ISCN: nuc ayaka(EGR1,A5Z046,D8Z2,KMT2A,PTPRT)x2[200]Test performed by:[facility] [address] [place] [id number] DRAGAN (test code = DRAGAN) [facility] MethodistShort tandem repeats (chmerism testing)2019-06-23 11:58:49* Test Item Value Reference Range Interpretation Comments Interpretation (test code = 7294478) 9[facility] Veronica ftmentSample #NameTypeSample DateReceived [id number], Jose(Pre-recipient)W.B.[id number], [id number](Donor)W.B.[id number], Jose(Punu-ARM-CQL)Silvino Martinez.[id number], Jose(Post-BMT-G)Yamini.06-18-2001-27-20 Twenty-four STR Loci tested:JVIU8U2O4138Y2L3312P8S258X33T9217G94X950Lqagn GN56L124K21U57F8Q7960TRJ7ITKfsxx DAU16nBWS42X10A1T12 5L0S029CGPQFLA389C8R0539M74L481N84D271RSVG00V8077Weatwf of Informative Loci: mononuclear cells (22) granulocytes (21)INTERPRETATION:DNA from mononuclear cells and granulocytes of post-transplant sample dated 06-18-19 demonstrates chimerism. The approximated percentage of donor origin DNA is: mononuclear cells 87%, granulocytes 97%.Average cell purity post-fractionation is 80% Mononuclear cells and 86% Granulocytes Case number (test code = 1714271) [id number] Short tandem repeats (chmerism testing) (test code = 4 96) See link below for PDF Lab Report [place] [facility] dklrnom0723-95-21 10:31:58* Test Item Value Reference Range Interpretation Comments Case number (test code = 1092621) [id number] Surgical pathology report (test code = 2255) See link below for PDF Lab Report Result status (test code = 5891728) This is Final Report for [id number] 9870-13 [place] MethodistFlow cytometry zyasawyhew8585-36-64 15:11:00* Test Item Value Reference Range Interpretation Comments Case number (test code = 5722002) [id number] Flow cytometry evaluation (test code = 5801537) See li nk below for PDF Lab Report [place] MethodistBone marrow wdcs6705-86-99 14:00:31* Test Item Value Reference Range Interpretation Comments Bone marrow tray (test code = 989) Done [place] MethodistBedside Ubcbssi3298-31-57 07:29:00* Test Item Value Reference Range Interpretation Comments Bedside Glucose (test code = 51434-6) 156 70-120 Meter ID: [id number] Memorial Hospitalodium Level 2019-06-01 06:16:00* Test Item Value Reference Range Interpretation Comments Sodium Level (test code = 2951-2) 137 136-145 [facility] CenterPotassium Efpph7187-44-14 06:16:00* Test Item Value Reference Range Interpretation Comments Potassium Level (test code = 2823-3) 3.8 3.5-5.1 [facility] CenterChloride Lqbkl0459-21-61 06:16:00* Test Item Value Reference Range Interpretation Comments Chloride Level (test code = 2075-0) 99 98-107 [facility] CenterCarbon Dioxide Yrlya5983-15-66 06:16:00* Test Item Value Reference Range Interpretation Comments Carbon Dioxide Level (test code = 2028-9) 27 22-29 [facility] CenterAnion Abr9422-50-63 06:16:00* Test Item Value Reference Range Interpretation Comments Anion Gap (test code = 54572-3) 14.8 8-16 [facility] CenterBlood Urea Gyzcdhiq5594-55-44 06:16:00* Test Item Value Reference Range Interpretation Comments Blood Urea Nitrogen (test code = 3094-0) 12 7-26 [facility] CenterCreatinine2020-02-10 06:16:00* Test Item Value Reference Range Interpretation Comments Creatinine (test code = 2160-0) 1.18 0.72-1.25 [facility] CenterBUN/Creatinine Tjtjl2653-23-16 06:16:00* Test Item Value Reference Range Interpretation Comments BUN/Creatinine Ratio (test code = 3097-3) 10 6-25 [facility] CenterEstimat Glomerular Filtration Rate 2019-06-01 06:16:00* Test Item Value Reference Range Interpretation Comments Estimat Glomerular Filtration Rate (test code = 673461897) > 60 >60 Ranges were taken from the National Kidney Disease Education Program and the [facility] Kidney Foundation literature.Reference ranges:60 or greater: Vkakup58-12 ( for 3 consecutive months): Chronic kidney disease 15 or less: Kidney failureMichael E. [facility] Medical CenterGlucose Anvbc7542-32-36 06:16:00* Test Item Value Reference Range Interpretation Comments Glucose Level (test code = BTG8855) 179 74-118 [facility] CenterCalcium Zahrb8501-40-98 06:16:00* Test Item Value Reference Range Interpretation Comments Calcium Level (test code = 88052-4) 8.9 8.4-10.2 [facility] CenterMagnesium Vnvif0697-69-01 06:16:00* Test Item Value Reference Range Interpretation Comments Magnesium Level (test code = 36099-1) 2.0 1.3-2.1 [facility] CenterCreatine Vhphae8431-02-04 06:16:00* Test Item Value Reference Range Interpretation Comments Creatine Kinase (test code = 2157-6) 611 30-200 [facility] CenterWhite Blood Hqrso8811-76-33 05:50:00* Test Item Value Reference Range Interpretation Comments White Blood Count (test code = 6690-2) 5.11 4.8-10.8 [facility] CenterRed Blood Rqvnh8868-96-86 05:50:00* Test Item Value Reference Range Interpretation Comments Red Blood Count (test code = 789-8) 4.18 4.3-5.7 [facility] CenterHemoglobin2020-02-10 05:50:00* Test Item Value Reference Range Interpretation Comments Hemoglobin (test code = 68517-0) 12.9 14.0-18.0 [facility] CenterHematocrit2020-02-10 05:50:00* Test Item Value Reference Range Interpretation Comments Hematocrit (test code = 4544-3) 39.5 38.2-49.6 [facility] CenterMean Corpuscular Sivoft1981-72-20 05:50:00* Test Item Value Reference Range Interpretation Comments Mean Corpuscular Volume (test code = 787-2) 94.5 81-99 [facility] CenterMean Corpuscular Xjrsuvvlsr5979-03-80 05:50:00* Test Item Value Reference Range Interpretation Comments Mean Corpuscular Hemoglobin (test code = 785-6) 30.9 28-32 [facility] CenterMean Corpuscular Hemoglobin Concent 2019-06-01 05:50:00* Test Item Value Reference Range Interpretation Comments Mean Corpuscular Hemoglobin Concent (test code = 786-4) 32.7 31-35 [facility] CenterRed Cell Distribution Dmoqf7511-86-43 05:50:00* Test Item Value Reference Range Interpretation Comments Red Cell Distribution Width (test code = 02311-7) 13.4 11.7 -14.4 [facility] CenterPlatelet Axoke2114-06-03 05:50:00* Test Item Value Reference Range Interpretation Comments Platelet Count (test code = 777-3) 164 140-360 [facility] CenterNeutrophils (%) (Auto)2019-06-01 05:50:00 * Test Item Value Reference Range Interpretation Comments Neutrophils (%) (Auto) (test code = 69175-2) 49.1 38.7-80.0 [facility] CenterLymphocytes (%) (Auto)2019-06-01 05:50:00 * Test Item Value Reference Range Interpretation Comments Lymphocytes (%) (Auto) (test code = 736-9) 39.7 18.0-39.1 [facility] CenterMonocytes (%) (Auto)2019-06-01 05:50:00* Test Item Value Reference Range Interpretation Comments Monocytes (%) (Auto) (test code = 5905-5) 7.4 4.4-11.3 [facility] CenterEosinophils (%) (Auto)2019-06-01 05:50:00 * Test Item Value Reference Range Interpretation Comments Eosinophils (%) (Auto) (test code = 713-8) 2.2 0.0-6.0 [facility] CenterBasophils (%) (Auto)2019-06-01 05:50:00* Test Item Value Reference Range Interpretation Comments Basophils (%) (Auto) (test code = 706-2) 0.8 0.0-1.0 [facility] CenterIM GRANULOCYTES %2019-06-01 05:50:00* Test Item Value Reference Range Interpretation Comments IM GRANULOCYTES % (test code = IM GRANULOCYTES %) 0.8 0.0- 1.0 [facility] CenterNeutrophils # (Auto)2019-06-01 05:50:00* Test Item Value Reference Range Interpretation Comments Neutrophils # (Auto) (test code = 751-8) 2.5 2.1-6.9 [facility] CenterLymphocytes # (Auto)2019-06-01 05:50:00* Test Item Value Reference Range Interpretation Comments Lymphocytes # (Auto) (test code = 18925-1) 2.0 1.0-3.2 [facility] CenterMonocytes # (Auto)2019-06-01 05:50:00* Test Item Value Reference Range Interpretation Comments Monocytes # (Auto) (test code = 742-7) 0.4 0.2-0.8 [facility] CenterEosinophils # (Auto)2019-06-01 05:50:00* Test Item Value Reference Range Interpretation Comments Eosinophils # (Auto) (test code = 711-2) 0.1 0.0-0.4 [facility] CenterBasophils # (Auto)2019-06-01 05:50:00* Test Item Value Reference Range Interpretation Comments Basophils # (Auto) (test code = 704-7) 0.0 0.0-0.1 [facility] CenterAbsolute Immature Granulocyte (auto 2019-06-01 05:50:00* Test Item Value Reference Range Interpretation Comments Absolute Immature Granulocyte (auto (usha t code = Absolute Immature Granulocyte (auto) 0.04 0-0.1 [facility] CenterCreatine Kinase UF3752-05-58 14:39:00* Test Item Value Reference Range Interpretation Comments Creatine Kinase MB (test code = 39635-5) 10.40 0-5.0 [facility] CenterTroponin Y2330-46-97 14:39:00* Test Item Value Reference Range Interpretation Comments Troponin I (test code = HQY3873) < 0.001 0-0.300 [facility] CenterHemoglobin A1c Indfciq5197-53-78 08:36:00 * Test Item Value Reference Range Interpretation Comments Hemoglobin A1c Percent (test code = Hemoglobin A1c Percent) 10.7 4.0-7.0 [facility] CenterTotal Xsolgkjwz7452-48-17 08:25:00* Test Item Value Reference Range Interpretation Comments Total Bilirubin (test code = 1975-2) 0.8 0.2-1.2 [facility] Medical CenterAspartate Amino Transf (AST/SGOT) 2019-05-30 08:25:00* Test Item Value Reference Range Interpretation Comments Aspartate Amino Transf (AST/SGOT) (test code = Aspartate Amino Transf (AST/SGOT)) 34 5-34 [facility] CenterAlanine Aminotransferase (ALT/SGPT) 2019-05-30 08:25:00* Test Item Value Reference Range Interpretation Comments Alanine Aminotransferase (ALT/SGPT) (test code = 1742-6) 32 0-55 [facility] CenterTotal Jbyldqq7199-24-23 08:25:00* Test Item Value Reference Range Interpretation Comments Total Protein (test code = 2885-2) 6.8 6.5-8.1 [facility] CenterAlbumin2020-02-08 08:25:00* Test Item Value Reference Range Interpretation Comments Albumin (test code = 1751-7) 3.6 3.5-5.0 [facility] CenterGlobulin2020-02-08 08:25:00* Test Item Value Reference Range Interpretation Comments Globulin (test code = 46441-9) 3.2 2.3-3.5 [facility] CenterAlbumin/Globulin Nufxd8293-52-96 08:25:00 * Test Item Value Reference Range Interpretation Comments Albumin/Globulin Ratio (test code = 1759-0) 1.1 0.8-2.0 [facility] CenterAlkaline Kvjzsjlfuew5446-48-56 08:25:00* Test Item Value Reference Range Interpretation Comments Alkaline Phosphatase (test code = 6768-6) 77 40-150 [facility] CenterThyroxine (T4)2019-05-30 07:45:00* Test Item Value Reference Range Interpretation Comments Thyroxine (T4) (test code = 3026-2) 1.43 4.5-10.9 [facility] CenterThyroid Stimulating Hormone (TSH) 2019-05-30 07:45:00* Test Item Value Reference Range Interpretation Comments Thyroid Stimulating Hormone (TSH) (test code = 57417-6) 54.336 0.350-4.940 [facility] CenterTriglycerides Hemfs7260-26-43 07:18:00* Test Item Value Reference Range Interpretation Comments Triglycerides Level (test code = 2571-8) 960 0-149 [facility] CenterCholesterol Aomvo0946-21-38 07:18:00* Test Item Value Reference Range Interpretation Comments Cholesterol Level (test code = 2093-3) 338 0-199 Less than 200 mg/dL Low Ydab603 - 239 mg/dL Borderline Mvwn575 m g/dl and greater High Risk [facility] CenterLDL Kierkgzcauo4125-13-26 07:18:00* Test Item Value Reference Range Interpretation Comments LDL Cholesterol (test code = 2089-1) 108 60-130 [facility] CenterHDL Fdjknqaxoea9610-87-18 07:18:00* Test Item Value Reference Range Interpretation Comments HDL Cholesterol (test code = 2085-9) 38 40-60 [facility] CenterCholesterol/HDL Xpfvr8879-14-42 07:18:00 * Test Item Value Reference Range Interpretation Comments Cholesterol/HDL Ratio (test code = 9830-1) 8.9 3.9-4.7 [facility] CenterAmylase Mtgtv5627-51-71 16:40:00* Test Item Value Reference Range Interpretation Comments Amylase Level (test code = 1798-8) 28 25-125 [facility] CenterLipase2020-02-07 16:40:00* Test Item Value Reference Range Interpretation Comments Lipase (test code = 3040-3) 49 8-78 [facility] CenterProthrombin Hjmn3923-38-00 16:22:00* Test Item Value Reference Range Interpretation Comments Prothrombin Time (test code = 5902-2) 11.8 11.9-14.5 [facility] CenterProthromb Time International Ratio 2019-05-29 16:22:00* Test Item Value Reference Range Interpretation Comments Prothromb Time International Ratio (test code = 6301-6) 0.82 Oral Anticoagulant Therapy INR Values:1. Low Intensity Therapy 1.5 - 2.02 . Moderate Intensity Therapy 2.0 - 3.03. High Intensity Therapy(1) 2.5 - 3. 54. High Intensity Therapy(2) 3.0 - 4.05. Panic Value INR > 5.0 [facility] Medical CenterActivated Partial Thromboplast Time 2019-05-29 16:22:00* Test Item Value Reference Range Interpretation Comments Activated Partial Thromboplast Time (test code = 82599-6) 28.8 23.8-35.5 [facility] CenterCytomegalovirus qxyovwo5491-64-04 13:57:12* Test Item Value Reference Range Interpretation Comments CMV antigen (test code = 1086) Not-detected Not-detected Reporting Unit: Cytomegalovirus Antigen Positive Leukocytes byIFA. Note: This assay is approved for qualitative analysis by the FDA. Quantitative procedures have been developed and validated by the Diagnostic Immunology Laboratory within [facility]. CMV negative cells per 50,000 cells examined. [facility] CenterManual gofaeqodewsm1703-40-36 12:12:17* Test Item Value Reference Range Interpretation Comments Manual differential (test code = 84668-6) PERFORMED Neutrophils (test code = 05603-4) 52.0 % 39-69 Lymphocytes (test code = 17581-9) 44.0 % 25-45 Monocytes (test code = 29153-6) 2.0 % 0-10 Eosinophils (test code = 05210-2) 2.0 % 0-5 Basophils (test code = 63567-5) 0.0 % 0-1 Metamyelocytes (test code = 740-1) 0 % Promyelocytes (test code = 783-1) 0 % Nucleated RBC (test code = 91967-0) 1 /100 WBC Platelet slide review (test code = 94369-9) Makayla adequate Anisocytosis (test code = 702-1) Moderate Polychromasia (test code = 85309-9) Moderate Tear drop cells (test code = 7791-7) Occasional Spherocytes (test code = 802-9) Occasional Ovalocytes (test code = 774-0) Moderate [facility]
[2019-09-15 10:56] LABS: BASOPHILS # (AUTO) 0.1 (0.0-0.1); BASOPHILS % 0.8 % (0.0-1.0); EOSINOPHILS # (AUTO) 0.1 (0.0-0.4); EOSINOPHILS % 2.1 % (0.0-6.0); HEMATOCRIT 40.7 % (38.2-49.6); HEMOGLOBIN 13.8 g/dL (14.0-18.0); LYMPHOCYTES % 31.8 % (18.0-39.1); MEAN CORPUSCULAR HEMOGLOBIN 30.9 pg (28-32); MEAN CORPUSCULAR HGB CONC 33.9 g/dL (31-35); MEAN CORPUSCULAR VOLUME 91.1 fL (81-99); MONOCYTES # (AUTO) 0.6 (0.2-0.8); MONOCYTES % 9.1 % (4.4-11.3); NEUTROPHILS # (AUTO) 3.5 (2.1-6.9); NEUTROPHILS % 55.1 % (38.7-80.0); PLATELET COUNT 243 x10e3/uL (140-360); RED BLOOD COUNT 4.47 x10e6/uL (4.3-5.7); RED CELL DISTRIBUTION WIDTH 12.7 % (11.7-14.4)
--- NOTE | 2019-09-15 10:58 | Diagnostic Imaging Report ---
Examination: CT BRAIN WO CONTRAST History:Left facial droop Comparison studies:None Technique: Axial images were obtained from the skull base to the vertex. Coronal and sagittal images reconstructed from the axial data. Dose modulation, iterative reconstruction, and/or weight based adjustment of the mA/kV was utilized to reduce the radiation dose to as low as reasonably achievable. Intravenous contrast: None Findings: Scalp: No abnormalities. Bones: No fractures, blastic or lytic lesions. Brain sulci: Appropriate for age. Ventricles: Normal in size and configuration. No hydrocephalus. Extra-axial space: No abnormalities. Parenchyma: No abnormal densities. No masses, hemorrhage, or acute or chronic cortical based vascular insults.. Sellar/suprasellar region: No abnormalities. Craniocervical junction: Patent foramen magnum. No Chiari one malformation. Incidental findings: None. Impression: No acute intracranial abnormalities. Signed by: Dr. More Chilel M.D. on 09/15/2019 10:54 AM
[2019-09-15 11:14] LABS: INR 0.78; PROTHROMBIN TIME 11.3 seconds (11.9-14.5)
[2019-09-15 11:15] LABS: PARTIAL THROMBOPLASTIN TIME 25.6 seconds (23.8-35.5)
[2019-09-15 11:19] LABS: ALBUMIN 3.9 g/dL (3.5-5.0); ANION GAP 16.1 mmol/L (8-16); CREATININE, SERUM 1.3 mg/dL (0.72-1.25); MAGNESIUM 2.2 MG/DL (1.3-2.1); POTASSIUM 4.1 mmol/L (3.5-5.1)
--- NOTE | 2019-09-15 11:23 | Diagnostic Imaging Report ---
X-ray chest AP portable Comparison: None History: Left facial droop. Headache. Findings: Central airways unremarkable. Heart size borderline normal. Mediastinum appears prominent likely because of the AP supine technique. No pleural effusion. No pneumothorax. Minimal right lung base discoid atelectasis. No other focal lung lesions. Visualized skeleton and extrathoracic soft tissues unremarkable. Impression: Given the limitations of technique, there is no acute cardiopulmonary disease. Signed by: Scar Villa MD on 09/15/2019 11:20 AM
[2019-09-15 11:25] LABS: CREATINE KINASE MB 3.9 ng/mL (0-5.0)
[2019-09-15 11:29] LABS: CLARITY,URINE CLEAR (CLEAR); COLOR,URINE YELLOW (YELLOW)
[2019-09-15 11:30] LABS: BILIRUBIN,URINE NEGATIVE (NEGATIVE); KETONES,URINE NEGATIVE (NEGATIVE); LEUKOCYTE ESTERASE ,URINE NEGATIVE (NEGATIVE); NITRITE,URINE NEGATIVE (NEGATIVE); PROTEIN,URINE DIPSTICK 2+ (NEGATIVE); URINE UROBILINOGEN 0.2 mg/dL (0.2 - 1)
[2019-09-15] MEDS ORDERED: SODIUM CHLORIDE 0.9% 1000ML 1,000 ML IV STA (11:32)
--- NOTE | 2019-09-15 11:32 | Emergency Department Note ---
History of Present Illnes History of Present Illness Chief Complaint: General Medicine Complaints History of Present Illness This is a 49 year old male TEE X 4 DAYS AND LEFT SIDE FACIAL DROOP AND EYEBROW. AAOX4. AMBULATORY. SEEN STAT IN TRIAGE BY RN/MD. 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 Any updates have been documented here. Past Medical History Recent Fever: No Clinical Suspicion of Infectio: No New/Unexplained Change in Ment: No Past Medical History: Hypertension, Diabetes, A-Fib, Hypothyroidism Past Surgical History: None Social History Smoking Cessation: Never Smoker Counseling Performed: No Alcohol Use: None Any Illegal Drug Use: No TB Exposure/Symptoms: No Physically hurt or threatened: No Other Any Pre-Existing Lines (PICC,: No Is patient up to date on immun: Yes Last Flu: utd Last Pneumovax: utd Review of Systems Review of Systems Constitutional: no symptoms EENTM: no symptoms Cardiovascular: no symptoms Respiratory: no symptoms Gastrointestinal: no symptoms Genitourinary: no symptoms Musculoskeletal: no symptoms Neurological: as per HPI, headache, numbness (LEFT FACE), weakness (LEFT FACE) Psychological: no symptoms Endocrine: no symptoms Hematological/Lymphatic: no symptoms Review of other systems All other systems reviewed and negative. Physical Exam Related Data Allergies: Coded Allergies: No Known Allergies (Unverified , 05/29/19) Triage Vital Signs Vital Signs Date Time Temp Pulse Resp B/P (MAP) Pulse Ox O2 Delivery O2 Flow Rate FiO2 09/15/19 10:06 98.3 81 16 150/100 95 Vital signs reviewed: Yes Physical Exam CONSTITUTIONAL Constitutional: well-developed, well-nourished HENT HENT: normocephalic, atraumatic, oropharynx clear/moist, nose normal HENT L/R: left ext ear normal, right ext ear normal EYES Eyes: PERRL, conjunctivae normal NECK Neck: ROM normal PULMONARY Pulmonary: effort normal, breath sounds normal CARDIOVASCULAR Cardiovascular: regular rhythm, heart sounds normal, capillary refill normal, normal rate GASTROINTESTINAL Abdominal: soft, nontender, bowel sounds normal GENITOURINARY Genitourinary: exam deferred SKIN Skin: warm, dry MUSCULOSKELETAL Musculoskeletal: ROM normal NEUROLOGICAL Neurological: alert, oriented x 3, cranial nerve deficit (LEFT FACIAL DROOP INVOLVING LEFT EYEBROW, DECR SENSATION LEFT FACE), other (EXCEPT FACE, 5/5 STR THROUGHOUT, SENSATION NORMAL EXCEPT LEFT FACE) PSYCHOLOGICAL Psychological: mood/affect normal, judgement normal Results Laboratory Result Diagram: 09/15/19 1018 Laboratory Laboratory Tests Test 09/15/19 10:18 09/15/19 10:11 White Blood Count 6.29 x10e3/uL (4.8-10.8) Red Blood Count 4.47 x10e6/uL (4.3-5.7) Hemoglobin 13.8 g/dL (14.0-18.0) Hematocrit 40.7 % (38.2-49.6) Mean Corpuscular Volume 91.1 fL (81-99) Mean Corpuscular Hemoglobin 30.9 pg (28-32) Mean Corpuscular Hemoglobin Concent 33.9 g/dL (31-35) Red Cell Distribution Width 12.7 % (11.7-14.4) Platelet Count 243 x10e3/uL (140-360) Neutrophils (%) (Auto) 55.1 % (38.7-80.0) Lymphocytes (%) (Auto) 31.8 % (18.0-39.1) Monocytes (%) (Auto) 9.1 % (4.4-11.3) Eosinophils (%) (Auto) 2.1 % (0.0-6.0) Basophils (%) (Auto) 0.8 % (0.0-1.0) Neutrophils # (Auto) 3.5 (2.1-6.9) Lymphocytes # (Auto) 2.0 (1.0-3.2) Monocytes # (Auto) 0.6 (0.2-0.8) Eosinophils # (Auto) 0.1 (0.0-0.4) Basophils # (Auto) 0.1 (0.0-0.1) Absolute Immature Granulocyte (auto 0.07 x10e3/uL (0-0.1) Prothrombin Time 11.3 seconds (11.9-14.5) Prothromb Time International Ratio 0.78 Activated Partial Thromboplast Time 25.6 seconds (23.8-35.5) Sodium Level 131 mmol/L (136-145) Potassium Level 4.1 mmol/L (3.5-5.1) Chloride Level 97 mmol/L (98-107) Carbon Dioxide Level 22 mmol/L (22-29) Anion Gap 16.1 mmol/L (8-16) Blood Urea Nitrogen 19 mg/dL (7-26) Creatinine 1.30 mg/dL (0.72-1.25) Estimat Glomerular Filtration Rate 58 ML/MIN (60-) BUN/Creatinine Ratio 15 (6-25) Glucose Level 371 mg/dL (74-118) Calcium Level 9.4 mg/dL (8.4-10.2) Magnesium Level 2.2 MG/DL (1.3-2.1) Total Bilirubin 0.5 mg/dL (0.2-1.2) Aspartate Amino Transf (AST/SGOT) 17 IU/L (5-34) Alanine Aminotransferase (ALT/SGPT) 24 IU/L (0-55) Alkaline Phosphatase 124 IU/L (40-150) Creatine Kinase 200 IU/L (30-200) Creatine Kinase MB 3.90 ng/mL (0-5.0) Troponin I 0.004 ng/mL (0-0.300) Total Protein 7.6 g/dL (6.5-8.1) Albumin 3.9 g/dL (3.5-5.0) Globulin 3.6 g/dL (2.3-3.5) Albumin/Globulin Ratio 1.1 (0.8-2.0) Urine Color Yellow (YELLOW) Urine Clarity Clear (CLEAR) Urine pH 6.5 (5 - 7) Urine Specific [place] 1.020 (1.010-1.025) Urine Protein 2+ (NEGATIVE) Urine Glucose (UA) 2+ (NEGATIVE) Urine Ketones Negative (NEGATIVE) Urine Blood Negative (NEGATIVE) Urine Nitrite Negative (NEGATIVE) Urine Bilirubin Negative (NEGATIVE) Urine Urobilinogen 0.2 mg/dL (0.2 - 1) Urine Leukocyte Esterase Negative (NEGATIVE) Urine RBC 0-5 /HPF (0-5) Urine WBC 0-5 /HPF (0-5) Urine Epithelial Cells Rare /LPF (NONE) Urine Bacteria Rare /HPF (NONE) Laboratory Tests Test 09/15/19 10:18 09/15/19 10:11 White Blood Count 6.29 x10e3/uL (4.8-10.8) Red Blood Count 4.47 x10e6/uL (4.3-5.7) Hemoglobin 13.8 g/dL (14.0-18.0) Hematocrit 40.7 % (38.2-49.6) Mean Corpuscular Volume 91.1 fL (81-99) Mean Corpuscular Hemoglobin 30.9 pg (28-32) Mean Corpuscular Hemoglobin Concent 33.9 g/dL (31-35) Red Cell Distribution Width 12.7 % (11.7-14.4) Platelet Count 243 x10e3/uL (140-360) Neutrophils (%) (Auto) 55.1 % (38.7-80.0) Lymphocytes (%) (Auto) 31.8 % (18.0-39.1) Monocytes (%) (Auto) 9.1 % (4.4-11.3) Eosinophils (%) (Auto) 2.1 % (0.0-6.0) Basophils (%) (Auto) 0.8 % (0.0-1.0) Neutrophils # (Auto) 3.5 (2.1-6.9) Lymphocytes # (Auto) 2.0 (1.0-3.2) Monocytes # (Auto) 0.6 (0.2-0.8) Eosinophils # (Auto) 0.1 (0.0-0.4) Basophils # (Auto) 0.1 (0.0-0.1) Absolute Immature Granulocyte (auto 0.07 x10e3/uL (0-0.1) Prothrombin Time 11.3 seconds (11.9-14.5) Prothromb Time International Ratio 0.78 Activated Partial Thromboplast Time 25.6 seconds (23.8-35.5) Lab results reviewed: Yes Imaging Imaging results reviewed: Yes Impressions Examination: CT BRAIN WO CONTRAST History:Left facial droop Comparison studies:None Technique: Axial images were obtained from the skull base to the vertex. Coronal and sagittal images reconstructed from the axial data. Dose modulation, iterative reconstruction, and/or weight based adjustment of the mA/kV was utilized to reduce the radiation dose to as low as reasonably achievable. Intravenous contrast: None Findings: Scalp: No abnormalities. Bones: No fractures, blastic or lytic lesions. Brain sulci: Appropriate for age. Ventricles: Normal in size and configuration. No hydrocephalus. Extra-axial space: No abnormalities. Parenchyma: No abnormal densities. No masses, hemorrhage, or acute or chronic cortical based vascular insults.. Sellar/suprasellar region: No abnormalities. Craniocervical junction: Patent foramen magnum. No Chiari one malformation. Incidental findings: None. Impression: No acute intracranial abnormalities. Signed by: Dr. More Chilel M.D. on 09/15/2019 10:54 AM X-ray chest AP portable Comparison: None History: Left facial droop. Headache. Findings: Central airways unremarkable. Heart size borderline normal. Mediastinum appears prominent likely because of the AP supine technique. No pleural effusion. No pneumothorax. Minimal right lung base discoid atelectasis. No other focal lung lesions. Visualized skeleton and extrathoracic soft tissues unremarkable. Impression: Given the limitations of technique, there is no acute cardiopulmonary disease. Signed by: Scar Villa MD on 09/15/2019 11:20 AM Diagnostics Tests Diagnostic test(s) reviewed: Yes Procedures 12 Lead ECG Interpretation Teacher Visually Impaired: Interpreted by ED physician Date: September 15, 2019 Time: 10:10 Prior LACE CUTTER tracings: reviewed Rhythm: sinus rhythm Rate: normal (79) QRS axis: normal ST segments normal: Yes T waves normal: Yes Other findings: LAE Clinical Impression: normal ECG Critical Care Time Subsequent provider I assumed direction of critical care for this patient from another provider of my specialty. Assessment & Plan Reassessment Reassessment PT WITH LEFT FACIAL DROOP AND HEADACHE - P.E. C/W TOVAR'S PALSY. CHECK CBC, CHEM'S, ECG, CARDIAC ENZYMES, CT BRAIN - R/O CEREBRAL BLEED, CVA, ELECTROLYTE ABNL, STEMIT/NSTEMI Assessment & Plan Final Impression: (1) Tovar's palsy (2) Hyperglycemia Assessment & Plan DISCHARGE WITH VALTREX 1 GM TID X 7 DAYS PREDNISONE 40 QD X 5 DAYS F/U PCP AND NEURO, DR CASTELLANOS TOMORROW DIABETIC DIET Depart Disposition: HOME, SELF-CARE Last Vital Signs Date Time Temp Pulse Resp B/P (MAP) Pulse Ox O2 Delivery O2 Flow Rate FiO2 09/15/19 11:07 98.5 78 23 147/101 96 Home Meds Active Scripts Fenofibrate (TRICOR) 145 Mg Tab, 145 MG PO DAILY, #30 TAB Prov:SMITH JOHNSON Juan VICE PRESIDENT OF MANUFACTURING 06/01/19 Levothyroxine Sodium (SYNTHROID) 100 Mcg Tab, 250 MCG PO DAILY@0600 for 30 Days, TAB Prov:SMITH JOHNSON VICE PRESIDENT OF MANUFACTURING 06/01/19 Reported Medications Insulin Lispro (HUMALOG) 100 Unit/1 Ml Insuln.pen, 12 SC TIDWM 06/01/19 Insulin Glargine (LANTUS 3ML PEN) 100 Units/1 Ml Inj, 32 SC HS 06/01/19 Amlodipine Besylate (AMLODIPINE BESYLATE) 5 Mg Tablet, 5 MG PO DAILY, #30 TAB 05/29/19 Levothyroxine Sodium (SYNTHROID) 100 Mcg Tab, 200 MCG PO 0600, #30 TAB 05/29/19 CHRISSY VIDAL MD September 15, 2019 11:31
[2019-09-15 11:39] LABS: ALBUMIN/GLOBULIN RATIO 1.1 (0.8-2.0); CALCIUM 9.4 mg/dL (8.4-10.2)
[2019-09-15 11:41] LABS: BACTERIA,URINE RARE /HPF; EPITHELIAL CELLS,URINE RARE /LPF; RBC,URINE 0-5 /HPF (0-5); WBC,URINE (MAN) 0-5 /HPF (0-5)
[2019-09-15] MEDS ORDERED: KETOROLAC TROMETHAMINE 30 MG/ML VIAL IV STA (11:52)
[2019-09-15] MEDS ORDERED: DIPHENHYDRAMINE HCL INJ 50 MG/ML VIAL IV ONE (12:00)
[2019-09-15] MEDS ORDERED: METOCLOPRAMIDE HCL 10 MG/2ML VIAL IV ONE (12:00)
[2019-09-15] MEDS ORDERED: SODIUM CHLORIDE 0.9% 50ML 50 ML ONE (12:30)
[2019-09-15] MEDS ORDERED: IOPAMIDOL 370 MG/ML 200 ML INFUS..BTL INJ ONE (12:30)
--- NOTE | 2019-09-15 13:01 | Diagnostic Imaging Report ---
Examination:CT SOFT TISSUE NECK WITH CONTRAST History: Left-sided ear pain for the past 4 days. Comparison studies: None Technique: Axial images from the skull base to the thoracic inlet Coronal and sagittal reformatted images. Dose modulation, iterative reconstruction, and/or weight based adjustment of the mA/kV was utilized to reduce the radiation dose to as low as reasonably achievable. Intravenous contrast: 100mL of Isovue 370. Findings: Soft tissues: No abnormalities. Aerodigestive tract: No abnormality. Lymph nodes: No radiographically significant adenopathy. Vessels: Arteries and veins are patent. Nonstenotic calcification of the right carotid bifurcation. Thyroid gland: Normal in size and homogeneous. Submandibular glands: Normal in size and homogeneous. Parotid glands: Normal in size and homogeneous. Orbits: No abnormalities. Paranasal sinuses: Clear. Temporal bones: No abnormalities. Skull base and facial bones: Intact. Cervical spine: No disc bulge or herniation or foraminal or canal stenosis. Visualized lung apices: No abnormalities. IMPRESSION: No abnormalities, specifically of the left posterior auricle or auricle. Signed by: Dr. More Chilel M.D. on 09/15/2019 12:58 PM
[2019-09-15 13:46] VITALS: BP 127/69
== END 2019-09-15 14:21 | disposition home or self-care (01) ==
LOC: ER 10:00
DX: R51 Headache (principal); G51.0 Bell's palsy; E11.65 Type 2 diabetes mellitus with hyperglycemia; I10 Essential (primary) hypertension; I48.91 Unspecified atrial fibrillation; E03.9 Hypothyroidism, unspecified
CPT/HCPCS: 36415; 70450; 70491; 71045; 80053; 81001; 82550; 82553; 83735; 84484; 85025; 85610; 85730; 87086; 93005; 99284; J1200; J1885; J2765; J7030; Q9967

== ENCOUNTER 2019-10-22 10:17 | Inpatient (IN) | payer OTHER ==
[~2019-10-22] VITALS: Ht 177.8 cm; Wt 104.3 kg
[2019-10-22] MEDS ORDERED: AZITHROMYCIN 500MG/NS 250 ML 250 ML IV STA (10:29)
[2019-10-22] MEDS ORDERED: CEFTRIAXONE SOD 1 GM/NS 50 ML 50 ML IV ONE (10:30)
[2019-10-22] MEDS ORDERED: DEXAMETHASONE SOD PHOS 10 MG/1 ML VIAL IV ONE (10:30)
[2019-10-22 10:50] LABS: BASOPHILS % 0.2 % (0.0-1.0); EOSINOPHILS # (AUTO) 0.1 (0.0-0.4); EOSINOPHILS % 1.2 % (0.0-6.0); HEMATOCRIT 35.2 % (38.2-49.6); HEMOGLOBIN 11.5 g/dL (14.0-18.0); LYMPHOCYTES # (AUTO) 1.3 (1.0-3.2); LYMPHOCYTES % 26.9 % (18.0-39.1); MEAN CORPUSCULAR HEMOGLOBIN 30.2 pg (28-32); MEAN CORPUSCULAR HGB CONC 32.7 g/dL (31-35); MEAN CORPUSCULAR VOLUME 92.4 fL (81-99); MONOCYTES # (AUTO) 0.3 (0.2-0.8); MONOCYTES % 6.7 % (4.4-11.3); NEUTROPHILS # (AUTO) 3.1 (2.1-6.9); NEUTROPHILS % 62.6 % (38.7-80.0); PLATELET COUNT 382 x10e3/uL (140-360); RED BLOOD COUNT 3.81 x10e6/uL (4.3-5.7); RED CELL DISTRIBUTION WIDTH 13.5 % (11.7-14.4)
[2019-10-22 11:14] LABS: ALANINE AMINOTRANSFERASE 18 IU/L (0-55); ALBUMIN 2.8 g/dL (3.5-5.0); ALBUMIN/GLOBULIN RATIO 0.7 (0.8-2.0); ALKALINE PHOSPHATASE 80 IU/L (40-150); ANION GAP 13.8 mmol/L (8-16); BLOOD UREA NITROGEN 9 mg/dL (7-26); BUN/CREATININE RATIO 9 (6-25); CALCIUM 8.9 mg/dL (8.4-10.2); CARBON DIOXIDE 23 mmol/L (22-29); CHLORIDE 103 mmol/L (98-107); CREATINE KINASE 111 IU/L (30-200); CREATININE, SERUM 1.03 mg/dL (0.72-1.25); EST GLOMERULAR FILTRATION RATE > 60 ML/MIN (60-); GLUCOSE 320 mg/dL (74-118); POTASSIUM 3.8 mmol/L (3.5-5.1); SODIUM 136 mmol/L (136-145)
[2019-10-22 11:56] LABS: EOSINOPHILS % (MANUAL) 1 % (0-7); LYMPHOCYTES % (MANUAL) 25 % (19-48); MONOCYTES % (MANUAL) 5 % (3.4-9.0); NEUTROPHILS % (MANUAL) 69 % (40-74)
--- NOTE | 2019-10-22 12:58 | Diagnostic Imaging Report ---
EXAMINATION: CHEST SINGLE (PORTABLE) INDICATION: Shortness of breath, pneumonia COMPARISON: Chest radiograph 09/15/2019 FINDINGS: LINES/TUBES:EKG leads overlie the chest. LUNGS:Bilateral lower lung predominant multifocal patchy opacities. PLEURA:No pleural effusion or pneumothorax. MEDIASTINUM:Cardiomediastinal silhouette is stably enlarged. BONES/SOFT TISSUES:No acute osseous injury. ABDOMEN:No free air under the diaphragm. IMPRESSION: Bilateral multifocal patchy opacities compatible with pneumonia in the proper clinical setting. Signed by: Feliz Walker MD on 10/22/2019 12:55 PM
--- NOTE | 2019-10-22 13:51 | NUR ---
UPTO 30LPM AT 100% VAPO THERM AFTER SATS DROPPED TO 90%; NOTIFIED RT, INCREASED AFTER WAS ON 15 LPM AT 60%
--- NOTE | 2019-10-22 16:28 | Emergency Department Note ---
History of Present Illnes History of Present Illness Chief Complaint: COVID PUI History of Present Illness This is a 49 year old male arrived to the ED with complaints of chest pain, shortness and cough. Concerns of possible Covid 19. Chief Complaint Comment c/o cough that makes his chest hurt x 3 days pt presents with bells palsy like facial droop to right side of face dr junior in room during triage Historian: Patient Arrival Mode: Car Rock Breaker Required: Yes Severity: mild Timing of current episode: constant Progression: waxing and waning Chronicity: new Context: Reports recent illness Past Medical/Family History Physician Review I have reviewed the patient's past medical and family history. Any updates have been documented here. Past Medical History Recent Fever: No Clinical Suspicion of Infectio: Yes New/Unexplained Change in Ment: No Past Medical History: Hypertension, Diabetes Past Surgical History: None Social History Smoking Cessation: Never Smoker Counseling Performed: No Alcohol Use: None Any Illegal Drug Use: No Physically hurt or threatened: No Other Any Pre-Existing Lines (PICC,: No Review of Systems Review of Systems Constitutional: Reports as per HPI, Reports chills, Reports fever EENTM: Reports no symptoms Cardiovascular: Reports no symptoms Respiratory: Reports no symptoms Gastrointestinal: Reports no symptoms Genitourinary: Reports no symptoms Musculoskeletal: Reports no symptoms Integumentary: Reports no symptoms Neurological: Reports no symptoms Psychological: Reports no symptoms Endocrine: Reports no symptoms Hematological/Lymphatic: Reports no symptoms Physical Exam Related Data Allergies: Coded Allergies: No Known Allergies (Unverified , 05/29/19) Triage Vital Signs Vital Signs Date Time Temp Pulse Resp B/P (MAP) Pulse Ox O2 Delivery O2 Flow Rate FiO2 10/22/19 10:26 99.1 90 22 160/102 91 Room Air 10/22/19 10:59 3.0 Vital signs reviewed: Yes Physical Exam CONSTITUTIONAL Constitutional: Present well-developed, Present well-nourished, Present ill appearing HENT HENT: Present normocephalic, Present atraumatic, Present oropharynx clear/moist, Present nose normal, Present other (rt sided facial droop involves forehead) HENT L/R: Present left ext ear normal, Present right ext ear normal EYES Eyes: Reports PERRL, Reports conjunctivae normal NECK Neck: Present ROM normal PULMONARY Pulmonary: Present effort normal, Present respiratory distress CARDIOVASCULAR Cardiovascular: Present regular rhythm, Present heart sounds normal, Present capillary refill normal, Present normal rate GASTROINTESTINAL Abdominal: Present soft, Present nontender, Present bowel sounds normal GENITOURINARY Genitourinary: Present exam deferred SKIN Skin: Present warm, Present dry MUSCULOSKELETAL Musculoskeletal: Present ROM normal NEUROLOGICAL Neurological: Present alert, Present oriented x 3, Present no gross motor or sensory deficits PSYCHOLOGICAL Psychological: Present mood/affect normal, Present judgement normal Results Laboratory Result Diagram: 10/22/19 1031 10/22/19 1031 Laboratory Laboratory Tests Test 10/22/19 10:48 10/22/19 10:31 White Blood Count 4.95 x10e3/uL (4.8-10.8) Red Blood Count 3.81 x10e6/uL (4.3-5.7) Hemoglobin 11.5 g/dL (14.0-18.0) Hematocrit 35.2 % (38.2-49.6) Mean Corpuscular Volume 92.4 fL (81-99) Mean Corpuscular Hemoglobin 30.2 pg (28-32) Mean Corpuscular Hemoglobin Concent 32.7 g/dL (31-35) Red Cell Distribution Width 13.5 % (11.7-14.4) Platelet Count 382 x10e3/uL (140-360) Neutrophils (%) (Auto) 62.6 % (38.7-80.0) Lymphocytes (%) (Auto) 26.9 % (18.0-39.1) Monocytes (%) (Auto) 6.7 % (4.4-11.3) Eosinophils (%) (Auto) 1.2 % (0.0-6.0) Basophils (%) (Auto) 0.2 % (0.0-1.0) Neutrophils # (Auto) 3.1 (2.1-6.9) Lymphocytes # (Auto) 1.3 (1.0-3.2) Monocytes # (Auto) 0.3 (0.2-0.8) Eosinophils # (Auto) 0.1 (0.0-0.4) Basophils # (Auto) 0.0 (0.0-0.1) Absolute Immature Granulocyte (auto 0.12 x10e3/uL (0-0.1) Differential Total Cells Counted 100 Neutrophils % (Manual) 69 % (40-74) Lymphocytes % (Manual) 25 % (19-48) Monocytes % (Manual) 5 % (3.4-9.0) Eosinophils % (Manual) 1 % (0-7) Sodium Level 136 mmol/L (136-145) Potassium Level 3.8 mmol/L (3.5-5.1) Chloride Level 103 mmol/L (98-107) Carbon Dioxide Level 23 mmol/L (22-29) Anion Gap 13.8 mmol/L (8-16) Blood Urea Nitrogen 9 mg/dL (7-26) Creatinine 1.03 mg/dL (0.72-1.25) Estimat Glomerular Filtration Rate > 60 ML/MIN (60-) BUN/Creatinine Ratio 9 (6-25) Glucose Level 320 mg/dL (74-118) Calcium Level 8.9 mg/dL (8.4-10.2) Total Bilirubin 0.6 mg/dL (0.2-1.2) Aspartate Amino Transf (AST/SGOT) 18 IU/L (5-34) Alanine Aminotransferase (ALT/SGPT) 18 IU/L (0-55) Alkaline Phosphatase 80 IU/L (40-150) Creatine Kinase 111 IU/L (30-200) Creatine Kinase MB 0.90 ng/mL (0-5.0) Troponin I < 0.001 ng/mL (0-0.300) Total Protein 6.9 g/dL (6.5-8.1) Albumin 2.8 g/dL (3.5-5.0) Globulin 4.1 g/dL (2.3-3.5) Albumin/Globulin Ratio 0.7 (0.8-2.0) Lab results reviewed: Yes Imaging Imaging results reviewed: Yes Impressions IMPRESSION: Bilateral multifocal patchy opacities compatible with pneumonia in the proper clinical setting. Critical Care Time Total Critical Care Time (min): 35 Critcal care necessary due to: respiratory failure Assessment & Plan Medical Decision Making MDM 49-year-old male arrives to the ED with complaints of cough fever generalized malaise. Patient tachypnea can hypoxic on arrival. Patient's symptoms concerning for Covid 19. Patient requires supplemental oxygen and hospital admission for further workup and management. Assessment & Plan Final Impression: (1) Acute respiratory failure due to COVID-19 (2) Hyperglycemia (3) Tovar's palsy Depart Disposition: ADMITTED Last Vital Signs Date Time Temp Pulse Resp B/P (MAP) Pulse Ox O2 Delivery O2 Flow Rate FiO2 10/22/19 14:26 76 37 125/91 98 10/22/19 10:59 3.0 10/22/19 10:26 99.1 Room Air Home Meds Active Scripts Fenofibrate (TRICOR) 145 Mg Tab, 145 MG PO DAILY, #30 TAB Prov:SMITH JOHNSON OUTSIDE SALES MANAGER 06/01/19 Levothyroxine Sodium (SYNTHROID) 100 Mcg Tab, 250 MCG PO DAILY@0600 for 30 Days, TAB Prov:SMITH JOHNSON OUTSIDE SALES MANAGER 06/01/19 Reported Medications Insulin Lispro (HUMALOG) 100 Unit/1 Ml Insuln.pen, 12 SC TIDWM 06/01/19 Insulin Glargine (LANTUS 3ML PEN) 100 Units/1 Ml Inj, 32 SC HS 06/01/19 Amlodipine Besylate (AMLODIPINE BESYLATE) 5 Mg Tablet, 5 MG PO DAILY, #30 TAB 05/29/19 Levothyroxine Sodium (SYNTHROID) 100 Mcg Tab, 200 MCG PO 0600, #30 TAB 05/29/19 Medications in the ED Dexamethasone Sodium Phosphate 6 mg ONCE ONCE IV Last administered on 10/22/19at 10:45; Admin Dose 6 MG; Start 10/22/19 at 10:30; Stop 10/22/19 at 10:39; Status DC Ceftriaxone Sodium 50 ml @ 100 mls/hr ONCE ONCE IV Last administered on 10/22/19at 11:02; Admin Dose 100 MLS/HR; Start 10/22/19 at 10:30; Stop 10/22/19 at 10:59; Status DC Azithromycin 250 ml @ 200 mls/hr NOW STAT IV Last administered on 10/22/19at 11:02; Admin Dose 200 MLS/HR; Start 10/22/19 at 10:29; Stop 10/22/19 at 11:43; Status DC FREYA JUNIOR, Oct 22, 2019 16:28
[2019-10-22] MEDS ORDERED: HYDRALAZINE HCL 20 MG/ML VIAL IV PRN (19:00)
[2019-10-22] MEDS ORDERED: DEXTROSE 50% SYRINGE 50 ML IV PRN (19:00)
[2019-10-22] MEDS ORDERED: INSULIN GLARGINE 100 UNITS/ML VIAL SQ SCH (21:00)
[2019-10-22] MEDS: INSULIN LISPRO 100 UNIT/1 ML 3ML VIAL SQ SCH (22:14)
[2019-10-22] MEDS ORDERED: BENZONATATE 100 MG CAP PO PRN (22:30)
[2019-10-22] MEDS ORDERED: GUAIFENESIN/CODEINE 10 ML CUP PO PRN (22:30)
[2019-10-22] MEDS ORDERED: ACETAMINOPHEN 325 MG TAB PO PRN (22:30)
[2019-10-22] MEDS ORDERED: ONDANSETRON HCL INJ 2MG/ML 2ML 2 MG/ML VIAL IV PRN (22:30)
[2019-10-22] MEDS: ENOXAPARIN INJ 80 MG/0.8 ML SYR SC SCH (22:34)
[2019-10-22] MEDS ORDERED: ENOXAPARIN SOD INJ 40 MG/0.4 ML SYR SC ONE (22:40)
[2019-10-23] VITALS (21 sets, daily range): BP systolic 105–136; BP diastolic 74–98
--- NOTE | 2019-10-23 03:17 | History and Physical ---
CHIEF COMPLAINT: Respiratory insufficiency, near respiratory failure associated with chest pain, shortness of breath, coughing. HISTORY OF PRESENT ILLNESS: The patient is a 49-year-old male, who complained for the past 3-4 days increasing shortness of breath and developed into chest pain and cough. The patient came in to emergency room for evaluation. The patient is hypoxic. He is placed on high concentration oxygen support. The patient did have some neurological problems to his right facial area, such as Tovar palsy, but otherwise the patient did not have any focal deficit. He did have some headaches as well. His symptoms off and on for the past few days, but much worsened today and the reason for him to present to the emergency room is because of increasing shortness of breath. At baseline, the patient has hypertension, diabetes, on insulin therapy. PAST MEDICAL HISTORY: Hypothyroidism, hypertension, dyslipidemia, diabetes type 2, on insulin therapy. PAST SURGICAL HISTORY: Noncontributory. SOCIAL HISTORY: The patient does not smoke or use alcohol. No regular drug use. ALLERGIES: NO KNOWN ALLERGIES. HOME MEDICATIONS: The patient is on: 1. Norvasc. 2. Fenofibrate. 3. Lantus. 4. Lispro. 5. Levothyroxine. PHYSICAL EXAMINATION: VITAL SIGNS: Temperature is 98, blood pressure 112/73, pulse rate is 81, respirations 18. GENERAL: The patient is in respiratory insufficiency with shortness of breath. He is on high concentration 100% oxygen. HEENT: Normocephalic and atraumatic. Anicteric. NECK: Supple grossly. PULMONARY: Diminished breath sounds bilaterally with coarses and rhonchi. CARDIOVASCULAR: S1, S2. Regular rate and rhythm. ABDOMEN: Soft, nontender, nondistended. EXTREMITIES: No gross cyanosis or edema. NEUROLOGIC: No gross focal deficit. LABORATORY DATA: WBC 4.9, hemoglobin 11.5, hematocrit 35.2, and platelets is 382. Sodium is 136, potassium 3.8, chloride 103, bicarb 23, BUN 9, creatinine 1.0, glucose is 320. SEROLOGY: COVID PCR pending. IMAGING: Chest x-ray imaging tests done, show bilateral multifocal patchy opacity compatible with pneumonia. IMPRESSION: 1. Bilateral pneumonia, could be viral pneumonia. However, coronavirus disease PCR is still pending at this time. This is presumed that the patient does have coronavirus disease-2019 as chest x-ray presentation. 2. Respiratory insufficiency with near respiratory failure, on high-flow oxygen support 100%. 3. Hyperglycemia due to diabetes type 2, on insulin therapy. 4. Hypothyroidism. 5. Moderate obesity. 6. Multiple chronic baseline problems. PLAN: Consultation with Dr. Anthony Yadav for thyroid and diabetes, Dr. Melani Means for infection with possible COVID-19, Dr. Diogo Montaño for Critical Care. I placed the patient on azithromycin and Rocephin, Decadron, Lovenox. Humulin sliding scale coverage and resume some home medication. We will monitor the patient closely tonight. The patient should be going to ICU waiting for the bed. The patient will continue with management. Repeated lab work. MD STEPHEN Dejesus/MODL /[id number]
[2019-10-23] MEDS: LEVOTHYROXINE SODIUM 125 MCG TAB PO SCH (05:56)
[2019-10-23 07:48] LABS: BASOPHILS % 0.1 % (0.0-1.0); HEMATOCRIT 35.4 % (38.2-49.6); HEMOGLOBIN 11.8 g/dL (14.0-18.0); LYMPHOCYTES # (AUTO) 1.7 (1.0-3.2); LYMPHOCYTES % 22.8 % (18.0-39.1); MEAN CORPUSCULAR HEMOGLOBIN 30.3 pg (28-32); MEAN CORPUSCULAR HGB CONC 33.3 g/dL (31-35); MONOCYTES # (AUTO) 0.4 (0.2-0.8); MONOCYTES % 5.9 % (4.4-11.3); NEUTROPHILS # (AUTO) 5.1 (2.1-6.9); NEUTROPHILS % 68.1 % (38.7-80.0); PLATELET COUNT 412 x10e3/uL (140-360); RED BLOOD COUNT 3.89 x10e6/uL (4.3-5.7); RED CELL DISTRIBUTION WIDTH 13.4 % (11.7-14.4)
--- NOTE | 2019-10-23 07:52 | Diagnostic Imaging Report ---
EXAMINATION: CHEST SINGLE (PORTABLE) INDICATION: ^Y ^COVID ^[id number] ^[id number] COMPARISON: 10/22/2019 FINDINGS: AP view TUBES and LINES: None. LUNGS: Lungs are well inflated. Unchanged moderate bilateral patchy airspace opacities. PLEURA: No pleural effusion or pneumothorax. HEART AND MEDIASTINUM: The cardiomediastinal silhouette is unremarkable.. BONES AND SOFT TISSUES: No acute osseous lesion. Soft tissues are unremarkable. UPPER ABDOMEN: No free air under the diaphragm. IMPRESSION: Stable bilateral multifocal Covid 19 pneumonia. Signed by: Dr. Michelle Burks M.D. on 10/23/2019 7:49 AM
[2019-10-23] MEDS: INSULIN LISPRO 100 UNIT/1 ML 3ML VIAL SQ SCH ×7 (07:58→21:41)
[2019-10-23 08:10] LABS: ALANINE AMINOTRANSFERASE 17 IU/L (0-55); ALBUMIN 2.6 g/dL (3.5-5.0); ALBUMIN/GLOBULIN RATIO 0.6 (0.8-2.0); ALKALINE PHOSPHATASE 77 IU/L (40-150); ANION GAP 13.6 mmol/L (8-16); BLOOD UREA NITROGEN 16 mg/dL (7-26); BUN/CREATININE RATIO 15 (6-25); CALCIUM 9.1 mg/dL (8.4-10.2); CARBON DIOXIDE 21 mmol/L (22-29); CHLORIDE 106 mmol/L (98-107); CREATININE, SERUM 1.06 mg/dL (0.72-1.25); EST GLOMERULAR FILTRATION RATE > 60 ML/MIN (60-); GLUCOSE 334 mg/dL (74-118); POTASSIUM 4.6 mmol/L (3.5-5.1); SODIUM 136 mmol/L (136-145)
[2019-10-23] MEDS: DEXAMETHASONE PHOS 4MG/ML 5ML MULTIDOSE VIAL IV SCH (08:58)
[2019-10-23] MEDS: FAMOTIDINE 20 MG/2 ML VIAL IV SCH ×2 (08:59→17:17)
[2019-10-23] MEDS: ASCORBIC ACID 500 MG TAB PO SCH ×2 (09:00→17:17)
[2019-10-23] MEDS: FENOFIBRATE 145 MG TAB PO SCH (09:00)
[2019-10-23] MEDS: AMLODIPINE BESYLATE 5 MG TAB PO SCH (09:00)
[2019-10-23] MEDS: ENOXAPARIN INJ 80 MG/0.8 ML SYR SC SCH ×2 (09:00→17:17)
[2019-10-23] MEDS: ZINC SULFATE 220 MG CAP PO SCH (09:00)
[2019-10-23] MEDS: CEFTRIAXONE SOD 1 GM/NS 50 ML 50 ML IV SCH (10:00)
[2019-10-23 11:33] LABS: LYMPHOCYTES % (MANUAL) 20 % (19-48); MONOCYTES % (MANUAL) 6 % (3.4-9.0); NEUTROPHILS % (MANUAL) 74 % (40-74)
--- NOTE | 2019-10-23 11:49 | Consultation ---
DATE OF CONSULTATION: Pulmonary Critical Care Consultation CHIEF COMPLAINT: Chest discomfort and cough for 4 days. HISTORY OF PRESENT ILLNESS: The patient is a 49-year-old man. He has a history of diabetes and does use insulin. Over the past 4 days, he has noted some cough and some pain with inspiration. He says he has been taking Tylenol for 4 days, but has not had any fevers. He noticed increasing congestion and dyspnea. He came to the emergency department and was found to have a COVID positive with an x-ray suggestive of viral pneumonia. He had a low oxygen saturation, was placed on Vapotherm. He is now on Vapotherm at 40 L with 100%. PAST SURGICAL HISTORY: Noncontributory. PAST MEDICAL HISTORY: 1. Diabetes. He does take insulin. 2. Hypothyroidism. 3. Hypertension. 4. The patient denies any prior cardiac history. 5. The patient denies any prior respiratory history. SOCIAL HISTORY: The patient has never been a smoker. He is not a drinker. ALLERGIES: THERE ARE NO KNOWN DRUG ALLERGIES. REVIEW OF SYSTEMS: The patient notes some malaise. He has no headache. He has some dyspnea. He has no cough now, but he did have cough over the past several days. He had some pain with inspiration that seems to have improved. He does have dyspnea. He has no abdominal pain. There is no nausea or vomiting. He has no leg edema. PHYSICAL EXAMINATION: VITAL SIGNS: The patient is afebrile. The blood pressure is 128/90 and saturation is 95% on 40 L with 100% FiO2. The pulse is 71. HEENT: Shows no facial swelling or erythema. CARDIAC: Reveals regular rate and rhythm with normal S1 and S2. LUNGS: Auscultation of lungs reveals crackles at the bases. There is no wheezing. ABDOMEN: Soft and nontender. There is no rebound or guarding. EXTREMITIES: Shows no leg edema or calf tenderness. There is no cyanosis or clubbing. SKIN: Shows no rashes. NEUROLOGICAL: Shows no focal abnormalities. LABORATORY DATA: The white blood cell count is 7.5 and hemoglobin is 11.8. The platelet count is 412. The BUN to creatinine ratio is 16 to 1.06. Carbon dioxide is 21. Albumin is 2.6. Blood sugar is 334. IMPRESSION: 1. Acute respiratory failure. 2. COVID-19 and viral pneumonia. 3. Diabetes with elevated blood sugars. 4. High blood pressure. 5. Hypothyroidism. PLAN: 1. Continue Vapotherm. 2. ABG now and try to wean Vapotherm as tolerated. 3. Azithromycin and Rocephin. 4. Dexamethasone daily. 5. Lovenox. 6. Evaluate for remdesivir. 7. Continue insulin therapy with monitoring of blood sugars. 8. Case discussed with Internal Medicine, Infectious Disease, the patient, nursing, and Respiratory. Diogo Montaño MD [facility] /[id number]
[2019-10-23] MEDS: AZITHROMYCIN 500MG/NS 250 ML 250 ML IV SCH (12:30)
[2019-10-23 14:04] LABS: FREE T4 (FREE THYROXINE) 0.43 ng/dL (0.8-1.8); THYROID STIMULATING HORMONE 12.739 uIU/mL (0.350-4.940)
--- NOTE | 2019-10-23 14:10 | Consultation ---
DATE OF CONSULTATION: 10/23/[address] Langford. Thank you very much for referring this patient. This is a 49-year-old gentleman who was referred to me for evaluation of uncontrolled diabetes mellitus and hypothyroidism. The patient reportedly is a known diabetic for last 10+ years and takes a combination of the Lantus and Humalog insulin at home. He also has history of hypothyroidism for which he is on Synthroid 0.25 mg once daily. The patient came to the hospital with shortness of breath. He was found to have COVID positive. He also has history of hypertension and hyperlipidemia. OBJECTIVE: GENERAL: The patient presently is alert, awake, little bit apprehensive. He is moderately overweight. VITAL SIGNS: His heart rate is around 74 per minute, blood pressure is 127/87 mmHg. HEENT: Essentially unremarkable. Thyroid is palpable. Clinically, he is near euthyroid. CHEST: Bilateral vesicular breathing. He has mild bronchospasm. CARDIAC: First and second heart sounds. There is no third or fourth heart sound. Ejection systolic murmur grade 2/6. EXTREMITIES: The patient has evidence of diabetic sensorimotor neuropathy in both lower extremities. CLINICAL IMPRESSION: Diabetes mellitus type 2, uncontrolled with complications precipitated by steroids. COVID-19 positive, hypoxemia, hypothyroidism, hyperlipidemia. PLAN: At this time is to do a hemoglobin A1c, thyroid function tests, monitor his blood sugars closely. I have increased both his Lantus and Humalog insulin. Thanks again for referring this patient. I will be follow this patient with you. MD NAVDEEP Barnes/[facility] /[id number]
--- NOTE | 2019-10-23 14:16 | Diagnostic Imaging Report ---
EXAMINATION: CHEST SINGLE (PORTABLE) INDICATION: ^PICC Line Placement ^[id number] ^[id number] COMPARISON: 10/23/2019 5:58 AM FINDINGS: AP view TUBES and LINES: Interval placement of a right PICC with tip coiled at the level of the right superior chest wall, likely in the subclavian vein. LUNGS: Lungs are well inflated. Unchanged bilateral multifocal consolidations. PLEURA: No pleural effusion or pneumothorax. HEART AND MEDIASTINUM: The cardiomediastinal silhouette is unremarkable.. BONES AND SOFT TISSUES: No acute osseous lesion. Soft tissues are unremarkable. UPPER ABDOMEN: No free air under the diaphragm. IMPRESSION: Right PICC with tip coiled and overlying the course of the subclavian vein. Recommend repositioning. Unchanged bilateral multifocal Covid 19 pneumonia. Signed by: Dr. Michelle Burks M.D. on 10/23/2019 2:13 PM
--- NOTE | 2019-10-23 15:15 | Diagnostic Imaging Report ---
EXAMINATION: CHEST SINGLE (PORTABLE) INDICATION: ^s/p picc placement COMPARISON: Chest radiograph 10/23/2019 1320 6:00 PM FINDINGS: AP view TUBES and LINES: Interval advancement of the right PICC with tip now overlying the cubital junction. LUNGS: Lungs are well inflated. Unchanged multifocal consolidations, bilaterally. PLEURA: No pleural effusion or pneumothorax. HEART AND MEDIASTINUM: The cardiomediastinal silhouette is unremarkable. BONES AND SOFT TISSUES: No acute osseous lesion. Soft tissues are unremarkable. UPPER ABDOMEN: No free air under the diaphragm. IMPRESSION: Right PICC with the tip overlying the cavoatrial junction. Unchanged multifocal pneumonia. Signed by: Dr. Michelle Burks M.D. on 10/23/2019 3:12 PM
[2019-10-23] MEDS ORDERED: REMDESIVIR 200MG/NS 100ML 200 MG IV ONE ×2 (18:00→21:00)
[2019-10-23] MEDS: INSULIN GLARGINE 100 UNITS/ML VIAL SQ SCH (21:41)
[2019-10-23] MEDS ORDERED: SODIUM CHLORIDE 0.9% 250ML 250 ML ONE (21:45)
--- NOTE | 2019-10-23 21:56 | Consultation ---
DATE OF CONSULTATION: REASON FOR CONSULTATION: Shortness of breath. HISTORY OF PRESENT ILLNESS: Mr. Cosby is a 49-year-old gentleman with history of obesity, diabetes mellitus, comes in with 4 days history of shortness of breath and cough. The patient is currently in the intensive care unit. He was placed on Vapotherm. PAST MEDICAL HISTORY: The patient has history of diabetes mellitus, on insulin; hypothyroidism, obesity, hypertension. PAST SURGICAL HISTORY: Denies. ALLERGIES: NKA. SOCIAL HISTORY: There is no smoking, drug abuse, or alcohol abuse. FAMILY HISTORY: Unremarkable. LABORATORY DATA: White count 7.5, hemoglobin 11. His COVID was positive. His sodium 136, potassium PHYSICAL EXAMINATION: GENERAL: He is currently alert, oriented, does not seem acute distress. VITAL SIGNS: Stable, currently afebrile. HEENT: He is not icteric. NECK: Supple. CHEST: Clear. HEART: S1, S2 soft. IMPRESSION: COVID-19 daily to finish 5 days total and Decadron 6 mg IV daily, Rocephin 1 g daily, azithromycin 500 mg daily for 3 days, Lovenox 40. He is given 0.5 mg/kg q.12 hours. He is currently in ICU. We will follow. MD LEELA Vallejo/EDDI /[id number]
[2019-10-24] VITALS (19 sets, daily range): BP systolic 95–125; BP diastolic 67–94
[2019-10-24] MEDS: LEVOTHYROXINE SODIUM 125 MCG TAB PO SCH (05:30)
[2019-10-24 06:32] LABS: BASOPHILS % 0.1 % (0.0-1.0); EOSINOPHILS % 0.1 % (0.0-6.0); HEMATOCRIT 35.2 % (38.2-49.6); HEMOGLOBIN 11.3 g/dL (14.0-18.0); LYMPHOCYTES # (AUTO) 1.9 (1.0-3.2); LYMPHOCYTES % 25.5 % (18.0-39.1); MEAN CORPUSCULAR HEMOGLOBIN 29.6 pg (28-32); MEAN CORPUSCULAR HGB CONC 32.1 g/dL (31-35); MEAN CORPUSCULAR VOLUME 92.1 fL (81-99); MONOCYTES # (AUTO) 0.5 (0.2-0.8); MONOCYTES % 7.1 % (4.4-11.3); NEUTROPHILS # (AUTO) 4.8 (2.1-6.9); NEUTROPHILS % 64.3 % (38.7-80.0); PLATELET COUNT 503 x10e3/uL (140-360); RED BLOOD COUNT 3.82 x10e6/uL (4.3-5.7); RED CELL DISTRIBUTION WIDTH 13.5 % (11.7-14.4)
--- NOTE | 2019-10-24 07:00 | Diagnostic Imaging Report ---
EXAMINATION: CHEST SINGLE (PORTABLE) INDICATION: ^resp failure ^[id number] ^[id number] COMPARISON: 10/23/2019 FINDINGS: AP view TUBES and LINES: Unchanged right upper extremity PICC. LUNGS: Unchanged pulmonary airspace disease, right lung greater than left. PLEURA: No pleural effusion or pneumothorax. HEART AND MEDIASTINUM: Stable cardiomegaly. BONES AND SOFT TISSUES: No acute osseous lesion. Soft tissues are unremarkable. UPPER ABDOMEN: No free air under the diaphragm. IMPRESSION: Unchanged pulmonary airspace disease suggestive of viral pneumonia. Stable cardiomegaly. Signed by: Indra Stephens MD on 10/24/2019 6:56 AM
[2019-10-24 07:08] LABS: ALANINE AMINOTRANSFERASE 17 IU/L (0-55); ALBUMIN 2.8 g/dL (3.5-5.0); ALBUMIN/GLOBULIN RATIO 0.7 (0.8-2.0); ALKALINE PHOSPHATASE 69 IU/L (40-150); ANION GAP 11.8 mmol/L (8-16); BLOOD UREA NITROGEN 19 mg/dL (7-26); BUN/CREATININE RATIO 21 (6-25); CALCIUM 9.1 mg/dL (8.4-10.2); CARBON DIOXIDE 25 mmol/L (22-29); CHLORIDE 106 mmol/L (98-107); CREATININE, SERUM 0.89 mg/dL (0.72-1.25); EST GLOMERULAR FILTRATION RATE > 60 ML/MIN (60-); GLUCOSE 93 mg/dL (74-118); POTASSIUM 3.8 mmol/L (3.5-5.1); SODIUM 139 mmol/L (136-145)
[2019-10-24] MEDS: INSULIN LISPRO 100 UNIT/1 ML 3ML VIAL SQ SCH ×7 (07:30→21:05)
[2019-10-24] MEDS: FAMOTIDINE 20 MG/2 ML VIAL IV SCH ×2 (09:03→17:19)
[2019-10-24] MEDS: ENOXAPARIN INJ 80 MG/0.8 ML SYR SC SCH ×2 (09:03→21:05)
[2019-10-24] MEDS: DEXAMETHASONE PHOS 4MG/ML 5ML MULTIDOSE VIAL IV SCH (09:03)
[2019-10-24] MEDS: ZINC SULFATE 220 MG CAP PO SCH (09:03)
[2019-10-24] MEDS: ASCORBIC ACID 500 MG TAB PO SCH ×2 (09:03→17:19)
[2019-10-24] MEDS: AMLODIPINE BESYLATE 5 MG TAB PO SCH (09:03)
[2019-10-24] MEDS: FENOFIBRATE 145 MG TAB PO SCH (09:03)
[2019-10-24 10:04] LABS: LYMPHOCYTES % (MANUAL) 26 % (19-48); MONOCYTES % (MANUAL) 7 % (3.4-9.0); NEUTROPHILS % (MANUAL) 67 % (40-74)
[2019-10-24 10:05] LABS: RBC MORPHOLOGY COMMENT NORMAL
[2019-10-24 10:06] LABS: PLATELET ESTIMATE ADEQUATE; PLATELET MORPHOLOGY COMMENT FEW LARGE
[2019-10-24] MEDS: CEFTRIAXONE SOD 1 GM/NS 50 ML 50 ML IV SCH (11:53)
[2019-10-24] MEDS: AZITHROMYCIN 500MG/NS 250 ML 250 ML IV SCH (11:53)
[2019-10-24] MEDS: REMDESIVIR 100MG/NS 100ML 100 MG IV SCH (15:15)
--- NOTE | 2019-10-24 18:24 | Progress Note ---
DATE: Pulmonary Progress Note SUBJECTIVE: The patient has no new complaints. He still has some dyspnea. He is on a Vapotherm at 40 L with 85%. He is saturating 100%. PHYSICAL EXAMINATION: VITAL SIGNS: The blood pressure is 124/72 and pulse is 67. HEENT: Shows no facial swelling or erythema. CARDIAC: Reveals a regular rate and rhythm with normal S1 and S2. LUNGS: Auscultation of lungs reveals rhonchorous breath sounds bilaterally. There is wheezing. ABDOMEN: Soft and nontender. There is no rebound or guarding. EXTREMITIES: Shows no leg edema or calf tenderness. There is no cyanosis or clubbing. SKIN: Shows no rashes. NEUROLOGICAL: Shows no focal abnormalities. LABORATORY DATA: BUN to creatinine ratio is normal. Other electrolytes within normal limits. Albumin is 2.8. White blood cell count is 7.5, hemoglobin is 11.3, and the platelet count is 503. RADIOGRAPHIC DATA: The patient has bilateral infiltrates. IMPRESSION: 1. Acute respiratory failure. 2. COVID-19 and viral pneumonia. 3. Diabetes with elevated blood sugars. 4. High blood pressure. 5. Hypothyroidism. PLAN: 1. Continue Vapotherm and wean as tolerated. 2. Continue insulin as needed. 3. Monitor blood pressure. 4. Remdesivir. 5. Dexamethasone. 6. Lovenox. Diogo Montaño MD [facility]/MOD[facility] /[id number]
[2019-10-24] MEDS: INSULIN GLARGINE 100 UNITS/ML VIAL SQ SCH (21:05)
[2019-10-25] VITALS (25 sets, daily range): BP systolic 94–137; BP diastolic 63–93
--- NOTE | 2019-10-25 05:48 | Diagnostic Imaging Report ---
EXAMINATION: CHEST SINGLE (PORTABLE) INDICATION: ^resp failure COMPARISON: 10/24/2019 FINDINGS: AP view TUBES and LINES: Unchanged right upper extremity PICC. LUNGS: Unchanged diffuse pulmonary airspace disease. PLEURA: Unchanged. HEART AND MEDIASTINUM: Stable cardiomegaly. BONES AND SOFT TISSUES: No acute osseous lesion. Soft tissues are unremarkable. UPPER ABDOMEN: No free air under the diaphragm. IMPRESSION: No interval change. Stable diffuse pulmonary airspace disease consistent with known viral pneumonia. Stable cardiomegaly. Signed by: Indra Stephens MD on 10/25/2019 5:44 AM
[2019-10-25] MEDS: LEVOTHYROXINE SODIUM 125 MCG TAB PO SCH (05:54)
[2019-10-25 06:21] LABS: BASOPHILS % 0.4 % (0.0-1.0); EOSINOPHILS % 0.4 % (0.0-6.0); HEMATOCRIT 36.7 % (38.2-49.6); LYMPHOCYTES % 23.6 % (18.0-39.1); MEAN CORPUSCULAR HEMOGLOBIN 29.9 pg (28-32); MEAN CORPUSCULAR HGB CONC 32.7 g/dL (31-35); MEAN CORPUSCULAR VOLUME 91.3 fL (81-99); MONOCYTES # (AUTO) 0.6 (0.2-0.8); MONOCYTES % 7.1 % (4.4-11.3); NEUTROPHILS # (AUTO) 5.4 (2.1-6.9); PLATELET COUNT 493 x10e3/uL (140-360); RED BLOOD COUNT 4.02 x10e6/uL (4.3-5.7); RED CELL DISTRIBUTION WIDTH 13.5 % (11.7-14.4)
--- NOTE | 2019-10-25 06:30 | NUR ---
Patient remain A/O X 3. Vapotherm reduced from 40L with FiO2 of 100% to 35L FiO2 85% overnight, patient able to maintain Oxygen saturation above 95% with good waveform
[2019-10-25 06:35] LABS: ALANINE AMINOTRANSFERASE 18 IU/L (0-55); ALBUMIN 2.8 g/dL (3.5-5.0); ALBUMIN/GLOBULIN RATIO 0.7 (0.8-2.0); ALKALINE PHOSPHATASE 78 IU/L (40-150); ANION GAP 12.8 mmol/L (8-16); BLOOD UREA NITROGEN 18 mg/dL (7-26); BUN/CREATININE RATIO 20 (6-25); CARBON DIOXIDE 25 mmol/L (22-29); CHLORIDE 104 mmol/L (98-107); EST GLOMERULAR FILTRATION RATE > 60 ML/MIN (60-); GLUCOSE 98 mg/dL (74-118); POTASSIUM 3.8 mmol/L (3.5-5.1); SODIUM 138 mmol/L (136-145)
[2019-10-25] MEDS: INSULIN LISPRO 100 UNIT/1 ML 3ML VIAL SQ SCH ×7 (07:30→20:55)
[2019-10-25] MEDS: AMLODIPINE BESYLATE 5 MG TAB PO SCH (09:00)
[2019-10-25] MEDS: DEXAMETHASONE PHOS 4MG/ML 5ML MULTIDOSE VIAL IV SCH (09:47)
[2019-10-25] MEDS: FENOFIBRATE 145 MG TAB PO SCH (09:47)
[2019-10-25] MEDS: FAMOTIDINE 20 MG/2 ML VIAL IV SCH ×2 (09:47→16:46)
[2019-10-25] MEDS: ASCORBIC ACID 500 MG TAB PO SCH ×2 (09:47→16:46)
[2019-10-25] MEDS: ZINC SULFATE 220 MG CAP PO SCH (09:48)
[2019-10-25] MEDS: ENOXAPARIN INJ 80 MG/0.8 ML SYR SC SCH ×2 (09:48→20:54)
[2019-10-25] MEDS: CEFTRIAXONE SOD 1 GM/NS 50 ML 50 ML IV SCH (09:49)
[2019-10-25] MEDS: AZITHROMYCIN 500MG/NS 250 ML 250 ML IV SCH (10:38)
[2019-10-25] MEDS: REMDESIVIR 100MG/NS 100ML 100 MG IV SCH (13:36)
--- NOTE | 2019-10-25 18:37 | Progress Note ---
DATE: SUBJECTIVE: The patient is feeling better. He is sitting upright in a chair. He is on 5 L nasal cannula. He has less cough and less dyspnea. PHYSICAL EXAMINATION: VITAL SIGNS: The patient is afebrile. The blood pressure is 99/70, saturation is 95% on 5 L. HEENT: Shows no facial swelling or erythema. CARDIAC: Reveals regular rate and rhythm with normal S1, S2. LUNGS: Auscultation of lungs reveals rhonchorous breath sounds bilaterally. No wheezing. ABDOMEN: Soft, nontender. There is no rebound or guarding. EXTREMITIES: Shows no leg edema or calf tenderness. There is no cyanosis or clubbing. SKIN: Shows no rashes. NEUROLOGICAL: Shows no focal abnormalities. LABORATORY DATA: White blood cell count is 8.3, hemoglobin is 12, and the platelet count is 493. BUN to creatinine ratio is normal. Other electrolytes are within normal limits. Chest x-ray shows diffuse bilateral infiltrates. IMPRESSION: 1. Viral pneumonia and COVID-19 infection. 2. Diabetes. 3. High blood pressure. 4. Hypothyroidism. PLAN: 1. Continue to wean oxygen as tolerated. 2. Complete remdesivir. 3. Complete dexamethasone. 4. Monitor blood sugars. Diogo Montaño MD [facility]L /[id number]
[2019-10-25] MEDS: INSULIN GLARGINE 100 UNITS/ML VIAL SQ SCH (20:55)
--- NOTE | 2019-10-25 21:40 | NUR ---
Transferred from ICU to room 185 via WC. Pt alert and oriented to name, no acute distress noted. Denies pain at this time. Phone within reach. Bed low and locked. Will continue to monitor.
[2019-10-26] VITALS: BP 117/81
[2019-10-26 04:00] VITALS: BP 124/95
[2019-10-26] MEDS: LEVOTHYROXINE SODIUM 125 MCG TAB PO SCH (05:54)
[2019-10-26] MEDS: INSULIN LISPRO 100 UNIT/1 ML 3ML VIAL SQ SCH ×4 (07:30→11:30)
[2019-10-26 08:14] VITALS: BP 126/90
[2019-10-26] MEDS: FAMOTIDINE 20 MG/2 ML VIAL IV SCH (08:44)
[2019-10-26] MEDS: ASCORBIC ACID 500 MG TAB PO SCH (08:45)
[2019-10-26] MEDS: FENOFIBRATE 145 MG TAB PO SCH (08:45)
[2019-10-26] MEDS: AMLODIPINE BESYLATE 5 MG TAB PO SCH (08:45)
[2019-10-26] MEDS: ZINC SULFATE 220 MG CAP PO SCH (08:45)
[2019-10-26] MEDS: CEFTRIAXONE SOD 1 GM/NS 50 ML 50 ML IV SCH (08:47)
[2019-10-26] MEDS: DEXAMETHASONE PHOS 4MG/ML 5ML MULTIDOSE VIAL IV SCH (08:49)
[2019-10-26] MEDS: ENOXAPARIN INJ 80 MG/0.8 ML SYR SC SCH (08:52)
[2019-10-26] MEDS ORDERED: SODIUM CHLORIDE 0.9% 250ML 250 ML ONE (09:20)
[2019-10-26 10:46] VITALS: BP 126/90
[2019-10-26] MEDS: AZITHROMYCIN 500MG/NS 250 ML 250 ML IV SCH (11:00)
[2019-10-26 12:08] VITALS: BP 119/83
--- NOTE | 2019-10-26 14:16 | Progress Note ---
DATE: SUBJECTIVE: The patient is feeling better. He is off oxygen. He has no chest pain. PHYSICAL EXAMINATION: VITAL SIGNS: The patient is afebrile. The blood pressure is 119/83, saturation is 95%. HEENT: No facial swelling or erythema. CARDIAC: Regular rate and rhythm with normal S1, S2. LUNGS: Auscultation of lungs reveals crackles bilaterally. There is no wheezing. ABDOMEN: Soft, nontender. There is no rebound or guarding. EXTREMITIES: No leg edema or calf tenderness. There is no cyanosis or clubbing. SKIN: No rashes. LABORATORY DATA: White blood cell count is 8.36 and hemoglobin is 12. The platelet count is 193. The BUN to creatinine ratio is normal. Other electrolytes are within normal limits. Blood sugar is 218. IMPRESSION: 1. Viral pneumonia and coronavirus disease-19 infection. 2. Diabetes. 3. Hypertension. 4. Hypothyroidism. PLAN: 1. Possible discharge home today. 2. Complete dexamethasone. 3. Continue to monitor blood sugars. 4. Assess for home oxygen. Diogo Montaño MD [facility] /[id number]
[2019-10-26] MEDS: REMDESIVIR 100MG/NS 100ML 100 MG IV SCH (14:34)
[2019-10-26] MEDS ORDERED: ONDANSETRON HCL 4 MG ORAL DISINTEGRATING TAB PO PRN (15:30)
--- NOTE | 2019-10-26 16:14 | NUR ---
Discharge education provided. Patient is given discharge packet and reinforced teaching regarding quarantine for 14 days and wear mask at all times. Home prescription given. Verbalized understanding. Right upper arm picc line removed per ordered, noted 39 cm catheter intact, occlusive dressing applied. Right forearm PIV discontinued, catheter intact, no bleeding noted.
[2019-10-26] MEDS ORDERED: INSULIN LISPRO 100 UNIT/1 ML 3ML VIAL SQ SCH (16:30)
[2019-10-26] MEDS ORDERED: INSULIN GLARGINE 100 UNITS/ML VIAL SQ SCH (21:00)
[2019-10-27] MEDS ORDERED: AZITHROMYCIN 250 MG TAB PO SCH (11:00)
== END 2019-10-26 16:22 | disposition home or self-care (01) | DRG 177 ==
LOC: ER 10:34 → ERHOLD 17:45 → ICU 10-23 01:08 → IMCU 10-25 21:44
PROVIDERS: ADMIT Internal Medicine; ATTEND Internal Medicine
PROC: 02HV33Z Insertion of Infusion Device into Superior Vena Cava, Percutaneous Approach (ICD-10-PCS; principal; 2019-10-23)
PROC: B548ZZA Ultrasonography of Superior Vena Cava, Guidance (ICD-10-PCS; 2019-10-23)
DX: U07.1 COVID-19 (principal); J12.89 Other viral pneumonia; J96.01 Acute respiratory failure with hypoxia; G51.0 Bell's palsy; E11.65 Type 2 diabetes mellitus with hyperglycemia; Z79.4 Long term (current) use of insulin; E03.9 Hypothyroidism, unspecified; E66.9 Obesity, unspecified; E78.5 Hyperlipidemia, unspecified; Z68.34 Body mass index [BMI] 34.0-34.9, adult
CPT/HCPCS: 36415; 36569; 71045; 80053; 82550; 82553; 82948; 83036; 84439; 84443; 84484; 85025; 87635; 93005; 96372; 99285; J0456; J0696; J1100; J1650; J1815; J7050